=== PATIENT | female | born 1955 | race Caucasian/White ===

== ENCOUNTER → 2024-03-31 14:21 | Outpatient (REF) | payer BC, SELFPAY | LOC: PAVMRI 14:21 | PROVIDERS: ATTENDING PHYSICIAN Family Medicine | DX: R25.1 Tremor, unspecified (principal); R47.89 Other speech disturbances; R51.9 Headache, unspecified | CPT/HCPCS: 70553; A9575 ==

== ENCOUNTER → 2024-04-04 13:56 | Outpatient (REF) | payer BC, SELFPAY ==
[2024-04-04 16:55] LABS: Blood Urea Nitrogen 20 mg/dl (7-17); Carbon Dioxide 32 mmol/L (22-30); Chloride 95 mmol/L (98-107); Glucose 277 mg/dl (70-99); Potassium 4.5 mmol/L (3.5-5.1); Sodium 138 mmol/L (135-145); eGFR > 60.00
== END ==
LOC: RAD 13:56
PROVIDERS: ATTENDING PHYSICIAN Psychiatry & Neurology Neurology; FAMILY PHYSICIAN Family Medicine
DX: C79.31 Secondary malignant neoplasm of brain (principal)
CPT/HCPCS: 36415; 71260; 74178; 80048; Q9967

== ENCOUNTER 2024-04-24 02:22 | Inpatient (IN) | payer BC, MEDICARE, SELFPAY ==
[2024-04-24] VITALS (15 sets, daily range): BP systolic 73–165; BP diastolic 61–117; PULSE 70–72; O2SAT 93; BMI 39.9; BMI 39.8
[2024-04-24 00:05] LABS: Glucose - Point of Care 321 mg/dl (70-99)
--- NOTE | 2024-04-24 00:15 | ED.CVA ---
History of Present Illness
General
Chief Complaint: CVA/TIA Symptoms
Source: patient and spouse
Time Seen by Provider: 04/24/24 00:13
Onset of Stroke Symptoms
Onset of symptoms known: Yes
Date of onset of symptoms: 04/24/24
Time of onset of symptoms: 23:00
History of Present Illness
History of Present Illness:
68-year-old female presents to the emergency room for evaluation of left leg weakness. Patient states that she was sitting in a chair at her dinner table when she stood up her left leg gave out. Patient denies any history of leg weakness. She has
had some previous back surgeries but has never had weakness in the lower extremities related to this. She denies any visual changes. She feels her left arm is normal. Patient's believes her speech is slower than normal though he does not
believe her speech is slurred. Patient had an MRI performed recently which the patient states had some lesions on it.
Past History
Past History
ED Past Medical History: Arrthythmia (afib), CHF, HTN, NIDDM and Other (Back pain); Negative CA or Valvular disease
ED Past Surgical History: Cardiac (ablation 2018)
Social History
Tobacco: Non-smoker
Alcohol: None
Drug: None
Personal:
Living: with family
Phy Exam
Physical Exam
Physical Exam:
General: Awake, Alert, Oriented X3. No acute distress.
Vitals: unremarkable
Head: Atraumatic
Eyes: Pupils equal, EOMI
Throat: Airway intact, no exudates
Neck: Trachea midline
Lungs: Clear and equal b/l
Heart: Regular rate, no murmurs
Abd: Soft, Nontender, No pulsatile mass
Neuro: Cranial nerves intact, 4-5 muscle strength left lower extremity otherwise muscle strength intact, sensation intact, cerebellar exam normal
Skin: Warm, dry, no rash
Extremities: pulses equal b/l, no edema
NIH Stroke Score
Level of Consciousness: 0 - Alert
LOC questions: 0-Answers both correctly
LOC Commands: 0-Performs both correctly
Best Gaze: 0-Normal
Visual Lion: 0=Normal, no visual loss
Facial palsy: 0=Normal, symmetrical
Motor - Right Arm: 0=No drift 10 seconds
Motor - Left Arm: 0=No drift 10 seconds
Motor - Right Le-No drift 5 seconds
Motor - Left Le-Drift < 5 seconds
Limb Ataxia: 0-Absent
Sensation: 0-Normal
Best Language: 0-No aphasia
Dysarthria: 0-Normal
Extinction and Inattention: 0-No abnormality
Total Score:: 1
Course
Orders/Labs/Results
Orders:
Orders
04/24/24 00:10
EKG [Electrocardiogram (*1)] Urgent
Reason for Study: Tachycardia
EKG- Treatment ONCE
04/24/24 00:14
CT Head & Neck Angio W/wo IV Urgent
Comment:
Reason For Exam: left leg weakness
CT Head W/o Cont STROKE ALERT Urgent
Comment:
Reason For Exam: left leg weakness
04/24/24 00:30
Complete Blood Count/With Diff Urgent
Comprehensive Metabolic Panel Urgent
Troponin I Urgent
04/24/24 01:50
Admit/Transfer Patient As Directed
Co-Sign Provider:
Level of Care: Inpatient admission
Assign to:: Telemetry
Physician / Group: Kathy
Diagnosis: Left leg weakness
Reason for Telemetry: CVA/TIA
Date to Stop Telemetry: 04/27/24
Time to Stop Telemetry: 11:00
Reason for Hospitalization: Left leg weakness and ring-enhancing lesion
Expected length of stay greater than two midnights?: Yes
ELOS- Estimated Length of Stay in days: 5
I certify the patient meets the requirements for IP care: Yes
04/24/24 01:52
Code Status As Directed
Resuscitation Status: Full Code
04/24/24 02:00
Flush (0.9% Sodium Chloride) [Flush (Nss)] See Dose Instructions IV PER PROTOCOL
04/27/24 11:00
DC Protocol for Telemetry ONCE
Abnormal Lab Results
04/24/24 04/24/24
00:04 00:30
MCH 31.5 H pg
(27.0-31.0)
MPV 10.5 H fL
(7.4-10.4)
Abs Immat Gran (auto) 0.1 H 10^3/uL
(0-0.05)
Absolute Monos (auto) 0.8 H 10^3/uL
(0.1-0.6)
Absolute Eos (auto) 0.9 H 10^3/uL
(0-0.7)
Immature Gran % 1.1 H %
(0-0.5)
Eosinophils % 8.9 H %
(0-6)
BUN 25 H mg/dl
(7-17)
Creatinine 1.1 H mg/dL
(0.6-1.0)
Glucose 314 H mg/dl
(70-99)
AST 103 H U/L
(14-36)
ALT 37 H U/L
(0-35)
POC Glucose 321 H mg/dl
(70-99)
04/24/24 00:30
04/24/24 00:30
Vital Signs
Initial and Last Documented VS:
Initial Vital Signs
Temp Pulse Resp BP Pulse Ox
98.9 F 71 20 132/83 97
04/24/24 00:04 04/24/24 00:04 04/24/24 00:04 04/24/24 00:04 04/24/24 00:04
Last Documented Vital Signs
Temp Pulse Resp BP Pulse Ox
98.9 F 74 17 116/70 96
04/24/24 00:04 04/24/24 01:30 04/24/24 01:30 04/24/24 01:30 04/24/24 01:30
MDM/Problems Addressed
Differential Diagnosis Includes:
TIA/CVA/sz/Lumbar radiculopathy
MDM/Problems Addressed:
Patient made a stroke alert on arrival. Patient presents with what appears to be acute onset of left lower extremity weakness. No other focal findings noted on neurologic exam. CT and CTA do not show any evidence of an acute infarct or large
vessel occlusion. Patient had an MRI which shows lesions of unclear etiology. Differential in the report includes metastatic disease, infectious lesions or ischemic lesions. The patient is not a candidate for thrombolysis given a low NIH score as
well as the possibility of cerebral metastases. Patient will be hospitalized for further workup of her leg weakness.
Chronic conditions affecting care: HTN and Arrhythmia
*Pulse Oximetry
Patient hypoxic: no
*EKG
Interpreted by ED Provider?: Yes
Interpretation: abnormal
Heart Rate: 68
Rate: normal
Rhythm: atrial flutter
QRS Pattern: normal QRS
Ischemia: no ischemia
*[employer] Interpretation
Rate: normal
Interpretation: abnormal
Rhythm: atrial flutter
*Critical Care Note
Total Time (30-74mins, 75-104mins- exclusive of procedures): 35 minutes
comment:
Critical care statement: A total of 35 minutes of critical care time was provided for this patient. This includes management of unstable vital signs, evaluation of the patient at bedside, reviewing the patient's pertinent medical records, discussion
with consultants, review of old EKGs and review of pertinent medical records. This time with separate from time utilized to perform the aforementioned documented procedures
ED Attending Note
-
Portions of this chart may have been created with voice recognition software.� Occasional wrong word or��sound alike� substitutions may have occurred due to the inherent limitations of voice recognition software.
Discharge Plan
Departure
Patient Disposition: Admit
Date of Disposition: 04/24/24
Time of Disposition: 01:18
Admit to: Telemetry
Presentation/result/management discussed w/ accepting MD/DO: Hospitalist
Condition: Fair
Discharge Problem:
acute left leg weakness
Prescriptions:
No Action
gabapentin 300 MG capsule
300 mg PO BID
insulin aspart U-100 [Novolog U-100 Insulin aspart] 1,000 UNITS/10 ML solution
20 units SC .FOR BS>300 PRN (Reason: BS>300)
ezetimibe 10 MG tablet
10 mg PO DAILY
oxycodone [OxyContin] 20 MG tablet,oral only,ext.rel.12 hr
20 mg PO Q12
Patient Comments:
on hold pending insurance
losartan [Cozaar] 100 MG tablet
100 mg PO DAILY
oxycodone 10 MG tablet
10 mg PO Q8HPRN PRN (Reason: pain)
cholecalciferol (vitamin D3) 125 MCG tablet,disintegrating
2,500 unit PO HS
polyethylene glycol 3350 17 GRAMS powder in packet
17 grams PO DAILY PRN (Reason: constipation)
ascorbic acid (vitamin C) [Vitamin C] 500 MG tablet
500 mg PO DAILY
diphenhydramine HCl [Banophen] 25 MG capsule
25 mg PO Q4HPRN PRN (Reason: itching)
Magnacaps 100 MG capsule
100 mg PO DAILY
metoprolol tartrate [Lopressor] 50 MG tablet
75 mg PO DAILY
duloxetine 60 MG capsule,delayed release(DR/EC)
60 mg PO DAILY
Eliquis 5 MG tablet
5 mg PO BID
dapagliflozin propanediol [Farxiga] 5 MG tablet
5 mg PO DAILY
Repatha Syringe 140 MG/ML syringe
140 mg SQ Q2W
ethacrynic acid 25 MG tablet
25 mg PO PRN PRN (Reason: swelling)
Patient Comments:
1-2 tabs
ascorbic acid (vitamin C) [Vitamin C With Amberly Hips] 500 MG tablet
500 mg PO DAILY
vitamin B complex 1 TAB tablet
1 tab PO DAILY
epinephrine [EpiPen 2-Cezar] 0.3 MG/0.3 ML auto-injector
0.3 mg IJ PRN PRN (Reason: anaphylaxis)
zinc 10 MG tablet
23 mg PO BID
naloxone [Narcan] 4 MG spray,non-aerosol
4 mg intranasal DIRECTED PRN (Reason: overdose of oxycodone)
metformin 1,000 MG tablet
1,000 mg PO BID Qty: 0 0RF
Rx Instructions:
Hold post cath, resume on Sat am
metoprolol tartrate 50 mg Tablet
50 mg PO HS
aspirin 81 mg Tablet,Delayed Release (Dr/Ec)
81 mg PO DAILY
Excedrin Extra Strength 250-250-65 mg Tablet
1 tab PO Q6H PRN (Reason: pain)
Interventions
Interventions:
*Risk Screen - Suicide Last Done: 04/24/24 00:33
*General Assessment Last Done: 04/24/24 00:33
*Neglect/Abuse Screening Last Done: 04/24/24 00:33
ED- Fall Risk Assessment Last Done: 04/24/24 00:34
*ED COVID-19 Vaccine History Last Done: 04/24/24 00:32
ED- Pulmonary Assessment Last Done: 04/24/24 00:35
ED- Neurological Assessment Last Done: 04/24/24 00:34
ED- Cardiac Assessment Last Done: 04/24/24 00:33
Discharge Date and Time
Print Language: GRENADIAN
[2024-04-24 00:44] LABS: % Basophils 1.9 % (0-2); % Eosinophils 8.9 % (0-6); % Immature Granulocytes 1.1 % (0-0.5); % Lymphocytes 32.3 % (20.5-51.1); % Monocytes 7.7 % (1.7-9.3); % Neutrophils 48.1 % (42.2-75.2); Absolute Basophils 0.2 10^3/uL (0-0.2); Absolute Eosinophils 0.9 10^3/uL (0-0.7); Absolute Immature Granulocytes 0.1 10^3/uL (0-0.05); Absolute Lymphocytes 3.4 10^3/uL (1.2-3.4); Absolute Monocytes 0.8 10^3/uL (0.1-0.6); Hematocrit 43.9 % (37.0-47.0); Hemoglobin 14.9 g/dL (12.0-16.0); Mean Corp Hgb Conc. 33.9 g/dL (33.0-37.0); Mean Corpuscular Hgb 31.5 pg (27.0-31.0); Mean Corpuscular Volume 92.8 fL (81.0-99.0); Mean Platelet Volume 10.5 fL (7.4-10.4); Nucleated Red Blood Cells % 0 %; Platelet Count 339 10^3/uL (130-400); Red Blood Cell Count 4.73 10^6/uL (4.20-5.40); Red Cell Dist. Width 14.5 % (11.5-14.5); White Blood Cell Count 10.5 10^3/uL (4.8-10.8)
[2024-04-24 01:00] LABS: ALT (SGPT) 37 U/L (0-35); AST (SGOT) 103 U/L (14-36); Albumin 4.7 g/dl (3.5-5.0); Alkaline Phosphatase 77 U/L (38-126); Blood Urea Nitrogen 25 mg/dl (7-17); Calcium 9.9 mg/dl (8.4-10.2); Carbon Dioxide 28 mmol/L (22-30); Chloride 98 mmol/L (98-107); Estimated Creatinine Clearance 68 ml/min; Glucose 314 mg/dl (70-99); Potassium 4.6 mmol/L (3.5-5.1); Sodium 138 mmol/L (135-145); Total Bilirubin 0.5 mg/dl (0.2-1.3); Total Protein 7.4 g/dl (6.3-8.2); eGFR 54.39
[2024-04-24 01:11] LABS: Troponin I < 0.012 ng/ml
--- NOTE | 2024-04-24 01:21 | HPS.HSE ---
Addendum entered and electronically signed by Jeromy Chavez MD 04/24/24 06:33:
Will continue aspirin in case this is a stroke
She is allergic to statin she gets her Repatha injection
As mentioned below needed CT chest, abdomen and pelvis showing IV contrast and creatinine mildly elevated, I will hold off ordering it until seen by oncologist or other physician, can be ordered pending her renal function then
Original Note:
Family Physician
-
Family Physician:
Chief Complaint
-
Left leg weakness
History of Present Illness
Pleasant 68-year-old female with history of diabetes, hypertension, chronic elevated liver enzymes likely fatty liver, presented to the hospital after sudden onset of the left leg weakness she calling in for an knee gave way and buckled up, she says
she was preparing dinner and not a dinner tray to get up on the table she could not but did not fall, denies any dizziness or any syncope, no speech disturbance, no visual change or any facial droop, or any chest pain shortness of breath or fever or
chill, admits she was doing well prior to the event, no urinary or GI symptoms, denies any weight change, no rectal bleed or hematuria, no cough or congestion.
Admits she has been having a chronic headache and eventually had an MRI as an outpatient and the result below show for ring-enhancing lesion in the right side of the brain, patient aware about that and saw her primary care physician today and CT
chest, abdominal pelvis with IV contrast ordered as an outpatient also she has a PET scan scheduled for May 01.
Currently she feels better and leg weakness is not existing when she laid down,
She supposed to take Eliquis for A-fib but she ran out 2 weeks ago and she has not been taking it.
Accompanied by her at the bedside
CT head CTA head and neck did not show any acute abnormalities.
Medical History
Past Medical History
Past Medical History: Reports Other
Additional Past Medical History:
Past medical history:
Hypertension
Diabetes mellitus
Chronic low elevated liver enzyme mildly likely fatty liver
Chronic diastolic congestive heart failure
Coronary artery disease
Atrial fibrillation
Thyroid nodule
Ascending thoracic aortic aneurysm 4.5 cm.
Type 2 diabetes mellitus
History of retinal hemorrhage in the right eye
Perform no neuropathy
Chronically cold feet and mildly purpleish color, patient has been
Social history: Lives at home with her , denies smoking and occasionally uses alcohol and no drug and she is independent.
Family history: Father had lymphoma as he was working on some chemical industry
Past Surgical History: Reports Other
Social History
Unable to obtain full social history at this time due to: Other
Family History
Family History: Other
Allergies / Home Medications
Allergies reflects when Allergies were last updated in [facility].
Home Medications with original date entered in [facility]
Allergy/Medication List:
Allergies
Allergy/AdvReac Type Severity Reaction Status Date / Time
cephalexin [From Keflex] Allergy Unknown Hives Verified 04/24/24 00:03
Penicillins Allergy Hives Verified 04/24/24 00:03
pioglitazone [From Actos] Allergy Swelling Verified 04/24/24 00:10
Xmhdvww-ENJ-GwK Reductase Allergy Unknown Verified 04/24/24 00:03
Inhibitor
[Slbbaxh-Xpe-Wcr Reductase
Inhibitor]
sulfamethoxazole Allergy Anaphylaxis Verified 04/24/24 00:03
[From Bactrim]
trimethoprim [From Bactrim] Allergy Anaphylaxis Verified 04/24/24 00:03
some cheeses Allergy Itching Uncoded 04/24/24 00:03
Home Medications
gabapentin 300 mg capsule 300 mg PO BID 09/20/16
ezetimibe 10 mg tablet 10 mg PO DAILY 06/11/18
insulin aspart U-100 100 unit/mL subcutaneous solution (Novolog U-100 Insulin aspart) 20 units SC .FOR BS>300 PRN BS>300 06/11/18
oxycodone 20 mg tablet,crush resistant,extended release 12 hr (OxyContin) 20 mg PO Q12 06/11/18
apixaban 5 mg tablet (Eliquis) 5 mg PO BID 02/16/22
ascorbic acid (vitamin C) 500 mg tablet (Vitamin C With Amberly Hips) 500 mg PO DAILY 02/16/22
ascorbic acid (vitamin C) 500 mg tablet (Vitamin C) 500 mg PO DAILY 02/16/22
cholecalciferol (vitamin D3) 125 mcg (5,000 unit) disintegrating tablet 2,500 unit PO HS 02/16/22
dapagliflozin propanediol 5 mg tablet (Farxiga) 5 mg PO DAILY 02/16/22
diphenhydramine HCl 25 mg capsule (Banophen) 25 mg PO Q4HPRN PRN itching 02/16/22
duloxetine 60 mg capsule,delayed release 60 mg PO DAILY 02/16/22
epinephrine 0.3 mg/0.3 mL injection, auto-injector (EpiPen 2-Cezar) 0.3 mg IJ PRN PRN anaphylaxis 02/16/22
ethacrynic acid 25 mg tablet 25 mg PO PRN PRN swelling 02/16/22
evolocumab 140 mg/mL subcutaneous syringe (Repatha Syringe) 140 mg SQ Q2W 02/16/22
losartan 100 mg tablet (Cozaar) 100 mg PO DAILY 02/16/22
magnesium 100 mg capsule (Magnacaps) 100 mg PO DAILY 02/16/22
metformin 1,000 mg tablet 1,000 mg PO BID ##0 02/16/22
metoprolol tartrate 50 mg tablet (Lopressor) 75 mg PO DAILY 02/16/22
naloxone 4 mg/actuation nasal spray (Narcan) 4 mg intranasal DIRECTED PRN overdose of oxycodone 02/16/22
oxycodone 10 mg tablet 10 mg PO Q8HPRN PRN pain 02/16/22
polyethylene glycol 3350 17 gram oral powder packet 17 grams PO DAILY PRN constipation 02/16/22
vitamin B complex 1 tab PO DAILY 02/16/22
zinc 10 mg tablet 23 mg PO BID 02/16/22
aspirin 81 mg tablet,delayed release 81 mg PO DAILY 04/24/24
amegwnb-iyfhimcpluasg-agtmdfkt 250 mg-250 mg-65 mg tablet (Excedrin Extra Strength) 1 tab PO Q6H PRN pain 04/24/24
metoprolol tartrate 50 mg tablet 50 mg PO HS 04/24/24
Review of Systems
-
A 12 point ROS was completed and negative except as noted: Yes
Physical Exam
Vital Signs
Vital Signs
Temp Pulse Resp BP Pulse Ox
98.9 F 70 21 126/61 96
04/24/24 00:04 04/24/24 01:00 04/24/24 01:00 04/24/24 01:00 04/24/24 01:00
Physical exam:
General: Awake, alert and oriented x3, not in distress and holds appropriate conversation. Overweight
HEENT: No active discharge, ecchymosis or bruising, moist lips, tongue and mucous membrane.
Eyes: No discharge or red conjunctiva, no nystagmus, pupils are reactive and equal
Neck:Supple, no JVD no bruit no goiter.
Respiratory: Normal AP contour and diameter, normal chest wall movement, normal respiratory effort, no respiratory distress,
Lungs: Good air entry bilaterally, no wheezing or rhonchi, no rales or crackles
Heart: S1, S2 regular, normal rate, no added sound.
Gastrointestinal: Positive bowel sounds, soft, nontender, no guarding or rigidity or organomegaly
Musculoskeletal: , no chest wall abnormality or tenderness. All joints and extremities have good range of motion, no muscle tenderness or any joint swelling or tenderness.
Extremities: No pitting edema, weak bilateral dorsalis pedis pulses, and both feet chronically cold and mildly purplish in color, good range of motion
Skin: Warm and dry, no ulceration, normal color.
Neurological: Awake, alert and oriented x3, cranial nerve II-XII grossly intact, extension intention intact, cerebellar sign intact speech clear and comprehensive, good muscle tone, normal sensory and motor function, no facial droop, visual acuity
intact, extraocular muscle intact, NIH score is 0
Psychiatric: Normal mood, normal thought and judgment, normal affect,
Physical Exam
General: Other
Laboratory Results
-
04/24/24 00:30
04/24/24 00:30
Laboratory Results
Total Bilirubin 0.5 mg/dl (0.2-1.3) 04/24/24 00:30
AST 103 U/L (14-36) H 04/24/24 00:30
ALT 37 U/L (0-35) H 04/24/24 00:30
Alkaline Phosphatase 77 U/L (38-126) 04/24/24 00:30
Troponin I < 0.012 ng/ml 04/24/24 00:30
CT brain:
No intracranial abnormality, no acute intracranial hemorrhage.
CTA head no large vessel occlusion or severe flow-limiting stenosis of major arteries of the anterior posterior circulation, hypoplastic V4 right vertebral artery.
CTA neck no occlusion, severe flow-limiting stenosis or evidence of dissection, approximately 50% chronic atherosclerotic stenosis of the right-sided CCA bifurcation from heavy calcified plaque and
Dilated pulmonary trunk consistent with pulmonary hypertension, ectatic ascending aorta at 4.2 cm diameter
Brain MRI: Done on March 31, 2024.
Multiple enhancing intraparenchymal lesions:
-0.4 cm enhancing lesion in the cortex of the posterior right frontal lobe (series 903, image 98).
-1.0 x 0.8 x 1.5 cm rim-enhancing lesion in the right frontal lobe and right insula (series 903, image 95). Mild associated restricted diffusion.
-0.5 cm enhancing lesion in the anterior cortex of the right insula (series 903, image 84).
-1.0 x 0.9 x 1.2 cm ring-enhancing lesion at the posterior margin of the right basal ganglia (series 903, image 97).
Corresponding T2/FLAIR hyperintense signal of the two larger lesions. Mild intrinsically hyperintense T1 signal of the lesion in the posterior right basal ganglia.
Moderate age-related parenchymal atrophy. T2/FLAIR hyperintense signal in the white matter of the bilateral cerebral hemispheres, most compatible with the changes of mild chronic microangiopathic ischemia. No mass effect, midline shift, or extra
axial collection.
The vascular flow voids at the skull base are unremarkable, as far as visualized.
The paranasal sinuses and mastoids are clear. Bilateral ocular lens implants.
IMPRESSION:
Four enhancing intraparenchymal lesions in the right cerebral hemisphere, the two larger of which show ring enhancement. The primary concern would be intraparenchymal brain metastases. Other differential considerations including signal changes and
enhancement secondary to infection or ischemia would be considered less likely based on their imaging appearance.
Data Reviewed
-
CT Scan: Image Personally Visualized and interpreted, Discussed with Patient and Discussed with Family
MRI: Report Reviewed by me, Discussed with Patient and Discussed with Family
Lab Data: Labs Reviewed by me and Discussed with Family
Old Records: Reviewed
Impression/Plan
-
IMPRESSION:
68-year-old female with history of coronary disease, diabetes, dyslipidemia, A-fib and ran out of the Jovie for 2-week and not taking it, presents with a sudden weakness of the left leg which look like resolved now in the ER during exam and laying
down, also she has a chronic headache while the MRI on March 31 showed multiple ring-enhancing lesion on the right cerebral hemisphere.
Left leg weakness, stroke versus related to the ring-enhancing lesion in the right cerebral hemisphere
Multiple ring-enhancing lesion in the right cerebral hemisphere
Acute kidney injury, creatinine 1.1
Diabetes mellitus
Noncompliant with medication
Chronic elevated liver enzymes likely secondary to fatty liver
Hypertension
Coronary artery disease
Chronic pain syndrome on narcotic.
Peripheral neuropathy
Concern for peripheral vascular disease
PLAN:
Cardiac monitoring
I will get a neurosurgery, oncology and neuro consult
Lymphoma or infectious causes may need to be considered, but infection unlikely.
Patient needs CT chest, abdomen and pelvis 24-hour after the current CAT scan and she will receive IV contrast and creatinine mildly elevated.
PT OT
Fall precaution
I will hold off restarting Eliquis as she has not been taking it for the last couple of week in case plan for biopsy or any intervention if not then can be restarted.
Hold aspirin
Monitor vital sign
IV fluid
Recheck lab
Continue her oxycodone
Continue insulin and monitor blood sugar.
I will hold diuretic for now she looks dry and dehydrated and needs IV fluids.
Advised about compliance with medication making sure not running out of the medication
Regarding elevated liver enzymes regular care of chronically elevated, this could be a fatty liver, metastases or liver lesion could be a possibility, she says she does not take much Tylenol.
CT abdominal pelvis to assess annually.
Viral hepatitis panel.
All discussed with the patient and the and expressed understanding
CODE STATUS of full code
DVT prophylaxis: Will SCD for now in case Of any intervention otherwise if no intervention planned can be started on pharmacologic prophylaxis.
[2024-04-24 02:53] LABS: Glucose - Point of Care 309 mg/dl (70-99)
--- NOTE | 2024-04-24 07:28 | W.PN.HOSP.TC ---
Addendum entered and electronically signed by Susan Clancy MD 04/24/24 16:29:
68-year-old female Presented to the hospital with acute onset of left leg weakness. Patient has been having chronic headaches and had an MRI as outpatient which showed calcifications. She also had a CT of the chest abdomen pelvis. She was
scheduled for a PET scan as outpatient.
CTA-calcific plaque within the carotid bulb less than 50% stenosis. Aneurysm of the ascending aorta 4.9 cm. Main pulmonary trunk dilated 3.9 cm suggestive of pulmonary artery hypertension. 1.9 cm right thyroid nodule
CVS: S1-S2 normal
Chest: CTA B/L
Abdomen: Soft, NT / Bowel sounds present
Extremities: No edema
CAMERA MECHANIC: No cranial nerve deficits. Normal sensorimotor exam. Normal flexors
# Left leg weakness
Rim-enhancing lesions in the brain
Differentials include metastasis, CVA, infections
Repeat MRI-focal area of abnormal restricted diffusion in the right posterior paramedian parietal lobe no evidence of enhancement likely focus of acute to subacute infarction.
More subtle region of increased diffusion weighted signal in the right paramedian frontal lobe and extending into the white matter suspicious for an area of acute to subacute infarction.
Multiple regions of persistent enhancement in the right cerebral hemisphere without significant change since March 31, 2024 felt to be mostly subacute infarction with persistent enhancement. Neoplastic disease is not completely excluded and in the
differential.
She admitted to not taking Eliquis for the past 2 weeks unclear if this could be the reason
Lumbar puncture also ordered , which I agree with to rule out infectious etiology for the rim-enhancing lesions.
Since she is off of Eliquis this would be the perfect timing to obtain LP.
Would also get a PET scan as scheduled
# Acute kidney injury
Possibly could be an injury
Check urinalysis and urine sodium
IV fluids as she also received contrast for CTA
Hold Jardiance and losartan
Follow creatinine
# Paroxysmal atrial fibrillation cardioversion October 2016
Ablation December 2016
Did not take Eliquis for 2 weeks as she ran out
Continue Eliquis 5 twice daily if okay with neurology
# Hypertension-continue metoprolol. Hold losartan with elevated creatinine
# Diabetes with neuropathy-
Check hemoglobin A1c
Hold Farxiga with elevated creatinine.
Continue metformin
Lantus insulin 12 units at night, NovoLog 5 AC plus sliding scale coverage
Hemoglobin A1c 11.3
She may need to be on insulin moving forward
Continue gabapentin for neuropathy
# Sleep apnea on CPAP
# Chronic heart failure with preserved ejection fraction. Hold ethacrynic acid with elevated creatinine
# Hyperlipidemia-continue Zetia, Repatha
# History of herniated disks and degenerative joint disease-with microdiscectomy #
# History of DRESS Syndrome from Bactrim
# Ascending aortic aneurysm 4.9 cm
# Hepatic steatosis
# 2.2 cm region of subtle increased attenuation in the inferior lateral margin of the right lobe-needs MRI
# Diverticulosis
# 1.9 cm right thyroid nodule. Outpatient workup
# DVT prophylaxis
# Full code
Discussed with neurology
Discussed with patient's at bedside
Discussed with nursing
Time spent over 50 minutes
Original Note:
Today's Communication/Plan
-
check LP
Assessment / Plan
Assessment / Plan
68-year-old female with history of coronary disease, diabetes, hyperlipidemia, A-fib and ran out of the Eliquis for 2-week and not taking it, presents with a sudden weakness of the left leg which resolved in the ER during exam and laying down, also
she has a chronic headache while the MRI on March 31 showed multiple ring-enhancing lesion on the right cerebral hemisphere.
#Left leg weakness,
PVD vs stroke versus related to the ring-enhancing lesion in the right cerebral hemisphere
- neurology consulted
- NIH score 1 in the ER
- CT and CTA do not show any evidence of an acute infarct or large vessel occlusion
- check LP
#Acute kidney injury,
- creatinine 1.1
- recehck labs
#Diabetes mellitus
-Continue insulin and monitor blood sugar.
#Chronic elevated liver enzymes likely secondary to fatty liver vs mets or Liver lesion
- check CT w contrast abd/pelvis
- viral hep panel pending
# Chronic A-fib
- ran out of eliquis 2 eeks ago
- EKG : ATRIAL FLUTTER WITH VARIABLE A-V BLOCK
#Hypertension- on lasartan at home
#Coronary artery disease- continue metoprolol
#Chronic pain syndrome on narcotic.- continue oxycontin
#Peripheral neuropathy- continue gabapentin and duloxetine
CODE STATUS: full code
DVT prophylaxis: Will SCD for now in case Of any intervention otherwise if no intervention planned can be started on pharmacologic prophylaxis.
Anticipated Discharge: Within 24 hours
Subjective/Interval History
-
Date of Service: April 24, 2024
Objective Data
-
Labs:
Laboratory Results
04/24/24 04/24/24 04/24/24
00:30 02:39 06:00
WBC 10.5 Pending
Hgb 14.9 Pending
Hct 43.9 Pending
Plt Count 339 Pending
Sodium 138 Cancelled
Potassium 4.6 Cancelled
Chloride 98 Cancelled
Carbon Dioxide 28 Cancelled
BUN 25 H Cancelled
Creatinine 1.1 H Cancelled
Glucose 314 H Cancelled
Calcium 9.9 Cancelled
Total Bilirubin 0.5 Cancelled
AST 103 H Cancelled
ALT 37 H Cancelled
Alkaline Phosphatase 77 Cancelled
Vital Signs:
Vital Signs
Temp Pulse Resp BP Pulse Ox
99.1 F 76 17 143/80 96
04/24/24 03:07 04/24/24 03:07 04/24/24 03:07 04/24/24 03:07 04/24/24 03:07
Review of Systems
-
History Source: Patient
Constitutional: Denies Fever
Respiratory: Denies Cough
Cardiac: Denies Chest Pain
Abdomen/GI: Denies Abdominal Pain
Genitourinary: Reports No Symptoms and Dysuria
Musculoskeletal: Denies Joint Pain
Neuro: Reports Headache
Hematologic / Lymphatic: Denies Bleeding
Physical Exam
-
General: Well Developed and Well Nourished
HEENT: Normocephalic and Atraumatic
Respiratory: Clear to Auscultation
Cardiac: Irregular Rhythm
GI: Soft and Nontender
Skin: Warm and Dry
Neuro: Awake, Alert, Oriented, AO x 3, No Motor Deficits, Nonfocal/Grossly Intact and No Sensory Deficits; Negative Tremors, Slurred Speech or Facial Droop
Psych: Calm
Data Reviewed
-
CT Scan: Report Reviewed by me, Discussed with Physician and Discussed with Patient
--- NOTE | 2024-04-24 07:37 | PTCARENOTE ---
Pt received from ER den[facility] 3 able to make her needs known, stroke packet provided.Pt states all her symptoms have resolved.NIH-0.Plan of care continued.
--- NOTE | 2024-04-24 08:11 | CON.NEURO4 ---
Addendum entered and electronically signed by Gerber Smith MD 04/24/24 15:59:
I saw and evaluated the patient I reviewed the note by Agatha Fish agree with the following the following comments:
68-year-old woman with a past medical history of obesity, hyperlipidemia, paroxysmal atrial fibrillation, CHF, diabetes mellitus, diabetic neuropathy presented to hospital due to sudden onset left leg weakness which lasted around 1 hour yesterday.
This seems to have completely resolved at this point. She denies any radiculopathy symptoms or significant change in chronic back pain she has had significant multiple spinal surgeries of the lumbar spine.
Patient had been not taking her apixaban for about the past 3 weeks.
At the end of March patient had gotten an brain MRI with and without contrast that was concerning for possibly brain metastasis to the right side of the brain. Patient had not had any focal symptoms of left-sided face arm or leg paresthesia or
weakness or speech difficulty or confusion but rather had had several months of daily unusual headache which prompted the brain scan.
She has no known history of malignancy has had an adrenal gland followed as well as multiple biopsies of a thyroid nodule.
Exam
Largely unremarkable neurologic examination, normal cranial nerve normal mental status normal motor function, normal coordination and fine finger movements
Imaging
Previous brain MRI images reviewed from the end of March: Subacute ischemic stroke in the right frontal and parietal cortex as well as right basal ganglia versus metastases are felt to be the most likely potential causes.
New brain MRI 04/24 still shows persistent contrast-enhancement in the right basal ganglia and right insula and right frontal lobe still with diffusion restriction in the right frontal lobe
Assessment: Subacute ischemic strokes of the right hemisphere versus neoplastic process/brain metastases which can be often very difficult to tell apart.
Patient's episode of left-sided low weakness yesterday I feel is probably too long-lasting to represent seizure, and usually less typical for seizures to produce negative symptoms/weakness. She did not have any back pain or radicular symptoms
during it so I feel is less likely due to her lumbar spine or nerve root issue. Most concerning for the left leg weakness to due to direct effects of the right-sided cerebral lesions versus a TIA given she has been off apixaban. CTA of the head
and neck is rule out any significant carotid stenosis as possible cause
Brain lesions on the repeated brain MRI today seem to be similar to the previous brain MRI approximately 3.5 weeks ago. Her clinical course leading up to the brain MRI at the end of March was characterized more by frequent diffuse unusual
headaches without any focal signs.
Patient does have diabetes but otherwise does not seem to be the type of patient who is so immune compromised that she would be at risk for toxoplasmosis or brain abscess, clinically she does not seem the picture of a brain abscess and certainly not
an encephalitis.
Probably has a degree of medication overuse headache given frequent nearly daily use of Excedrin migraine.
Recommendations
-Appreciate neurosurgical input
-Should hold off of steroids
-Switching metoprolol to propranolol may help with improving her headaches, additionally I informed her that she needs to stop Excedrin migraine for at least 1 month as it may be producing a medication rebound headache, in the meantime she could use
Compazine and 2 days a week maximum sumatriptan hand for as needed relief of headaches
-Await final read on brain MRI with and without contrast
-Would pursue lumbar puncture to more definitively rule out infection and [employer] although my suspicion is low
-We will need to get her back on apixaban for stroke prevention from atrial fibrillation as soon as felt possible but will need to solidify plans for any further potential procedures or biopsies given the concern for malignancy, in the meantime
continue aspirin
Original Note:
Documented by User: Agatha Mccullough NP 04/24/24 15:15
Consultation - Neurology 4
-
CONSULTING PHYSICIAN: Bakari Smith MD
REFERRING PHYSICIAN: Hospitalists/Dr. Chavez
DICTATED BY: MURTAZA Norris
DATE/TIME OF REQUEST: 04/24/24
DATE/TIME OF CONSULTATION: 04/24/24
Reason for Consultation: LLE weakness
History of Present Illness:
This is a 68-year-old right-handed female who has presented to the hospital on 04/23/24 with report of LLE weakness. Patient endorses a 6 month history of new onset daily persistent headache that has progressively worsened in the past 2-3 months.
She was sent for an MRI brain as an outpatient by her PCP. She completed this on 03/31/24 and it demonstrated multiple enhancing lesion in the right frontal lobe, right insula, and right basal ganglia. She denies any other neurological symptoms
besides a hand tremor right>left with exertion only. She was evaluated by Neurology Dr. Mena Lainez on 04/04/24 for this and was told her tremor was likely an essential tremor and they planned to repeat her MRI brain at a later date. She has not
yet set up an appointment with Neurosurgery as an outpatient. Yesterday (04/23/24), patient reports feeling in her usual state when she stood up from her kitchen table at 2230 and suddenly noted that her LLE felt weak, like it was going to give-out
on her, and her gait was unsteady. She typically ambulates with a single point cane but reports needing two canes, a rolling walker, and the assistance of her to make it to her car to come to the ER. On arrival in the ER, CT head and CTA
head/neck were obtained and do not demonstrate any acute finding other than the known lesions in the right hemisphere. NIHSS was 1 for LLE drift. She was not a candidate for TNK/IAT due to low NIHSS and no LVO. Patient reports that after about 1-2
hours her LLE returned to baseline and today she is ambulating without any issues. She is prescribed Eliquis 5mg BID for Afib but reports running out of this medication about three weeks ago, it is unclear if this was before or after she had her MRI
brain completed. She also takes aspirin 81mg daily for cardiac purposes and has continued this. She denies any dizziness, vision changes, speech/swallow difficulty, new numbness, chest pain, palpitations, and shortness of breath. She has chronic
neuropathy in bilatral lower extremities long term up her shins and also in bilateral hands. She also notes a recent history of coughing with oral intake. She reports her usual frontal headache, currently she rates it a 6/10. Her headache is almost
daily and ranges from a 6-10/10. It is associated with mild photophobia, phonophobia, nausea but no vomiting. She has chronic lower back pain and takes oxycodone BID for this for years, she reports that helps her headache somewhat. Additionally, she
has been taking Excedrin Migraine 1-2x per day for 1-2 months with improvement in her headache. She denies any low back pain/radiculopathy last night when her LLE weakness occurred. Her lumbar radiculopathy can occur in both legs, typically after
she has been walking or standing for an extensive period of time. She denies any history of TIA, stroke, or leg weakness in the past. She is scheduled to have a PET scan on 05/01/24, CT abdomen and pelvis on 04/04/24 which demonstrated small
mediastinal lymph nodes.
Past Medical History: HTN, HLD, paroxysmal Afib, NIDDM, CHF, left adrenal adenoma (never biopsied), right and left thyroid nodule, diabetic neuropathy and retinopathy, glaucoma, lumbar DDD/stenosis/radiculopathy, LAVONNE (cpap), depression, thoracic
aortic aneurysm
Surgical History: Cholecystectomy, D&E, PVI ablation, laparoscopic lumbar laminectomy/discectomy x6, left eye vitrectomy, b/l cataract removal, thyroid biopsy x2
Family History: Father- [place] age 55.
Social History: Denies tobacco and illicit drug use. Rare alcohol. Lives with her and cats. 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
Allergies: See below.
Home Medications: See below.
Review of Symptoms:
Patient denies any fever, chest pain, shortness of breath, GI or symptoms.
�Per the HPI.�All systems are reviewed negative except above.
Physical Exam:
The patient is afebrile, abdomen is nondistended, breathing is unlabored, skin is warm and dry, no edema.
NIH Stroke Scale:
I performed the NIH stroke scale on the patient on 04/24/24 at 0930. The patient scored 0 points on the NIH stroke scale assessment, which were assigned as follows: See below.
Neurologic Examination:
The patient is awake, alert and oriented x 3. She is able to follow commands and answer questions appropriately. There is no aphasia or dysarthria. On cranial nerve assessment, pupils are 3 mm bilateral, round and reactive to light and
accommodation, slightly more sluggish in the right eye. Visual lion are full. Extraocular movements are intact. Facial sensations are intact and bilaterally symmetrical, there is no facial asymmetry. Hearing is intact bilaterally to normal
conversation volume. Tongue palate and uvula are midline. Sternocleidomastoid strengths are full bilaterally. Motor strengths are 5/5 bilateral upper and 5-/5 bilateral lower extremities on medical research [place] scale. There is no drift or
involuntary movement noted. Deep tendon reflexes are absent bilateral upper and lower extremities and Babinski is absent bilaterally. Sensations of touch, temperature and vibration are intact and bilaterally symmetrical. There was no extinction
noted on double simultaneous stimulation. Coordination is intact by finger to nose bilaterally.
Lab Results: See below.
Neuro Imaging:
1. CT Head 04/23/24: No intracranial hemorrhage or abnormal mass effect. Scattered foci of hypoattenuation within the right cerebral hemisphere. These may be related to ring-enhancing masses seen on prior MRI dated 03/31/2024, and are concerning for
intracranial metastasis. CT appearance is nonspecific, and infarct or small vessel ischemic change may look similar on CT.
2. CTA head/neck 04/23/24: No evidence of large vessel occlusion, or arterial dissection. Calcified plaque within each carotid bulb, associated with less than 50% stenosis on each side. Aneurysm of the ascending thoracic aorta, measuring 4.9 cm in
greatest imaged orthogonal dimension. Main pulmonary trunk is dilated, measuring 3.9 cm in diameter, suggestive of pulmonary arterial hypertension. 1.9 cm right thyroid nodule. This may be further evaluated with thyroid ultrasound.
Differentials for the patient's presentation include:
1. Transient left lower extremity weakness; unclear etiology, TIA, right hemisphere brain lesions, or lumbar spine issue all possible.
2. New daily persistent headache possibly worsened by medication overuse.
Patient has the following risk factors for their symptoms:
IV Tenecteplase/IAT candidacy: She was not a candidate for TNK/IAT due to low NIHSS and no LVO.
Recommendations:
-Lumbar puncture pending.
-MRI brain w/ and w/o contrast pending per Neurosurgery.
-Goal normotension.
-Continue Eliquis 5mg BID when no further interventional procedures are planned.
-Continue aspirin 81mg daily now.
-Would not start steroids at this point unless otherwise advised by Neurosurgery.
-Okay to continue home oxycodone but this is likely not helping her headache.
-Discontinue use of Excedrin.
-Initiate magnesium 400mg and riboflavin 400mg PO daily for headache prevention.
-Consideration for changing home metoprolol to propranolol for headache prevention if okay with Cardiology.
-Provide prochlorperazine 10mg PO q8hrs for headache relief.
-DVT prophylaxis.
-NIHSS and neurological checks per unit guidelines.
-Provide patient with a stroke education packet.
-PT/OT/ST evaluations.
-Will follow.
Discussed patient care with: Dr. Smith, the patient
Vital Signs and Labs
-
Vital Signs and Labs:
Vital Signs
Temp Pulse Resp BP Pulse Ox
97.7 F 79 18 165/80 94
04/24/24 13:07 04/24/24 13:07 04/24/24 13:07 04/24/24 13:07 04/24/24 13:07
Lab Results
04/24/24 08:51
04/24/24 02:39
PT 13.1 Sec (11.4-14.6) 04/24/24 12:57
INR 0.99 04/24/24 12:57
Sodium Cancelled 04/24/24 02:39
Potassium Cancelled 04/24/24 02:39
BUN Cancelled 04/24/24 02:39
Glucose Cancelled 04/24/24 02:39
Calcium Cancelled 04/24/24 02:39
LDL Cholesterol, Calc 94 mg/dl 04/24/24 08:51
Medications
-
Active Medications
Generic Name Dose Route Start Last Admin
Trade Name Freq PRN Reason Stop Dose Admin
Acetaminophen 650 mg 04/24/24 02:39
Acetaminophen 650 Mg Rectal Suppository RECTAL 05/22/24 02:38
Q4HPRN PRN
GUY, mild pain, or temp >100.4F
Acetaminophen 650 mg 04/24/24 02:39
Acetaminophen 325 Mg Tablet PO 05/22/24 02:38
Q4HPRN PRN
GUY, mild pain, or temp >100.4F
Aspirin 81 mg 04/24/24 08:00 04/24/24 09:09
Aspirin 81 Mg Chewable Tablet PO 05/22/24 07:59 81 mg
DAILY ADELIA Administration
Dapagliflozin 5 mg 04/24/24 08:00 04/24/24 09:09
Dapagliflozin (Farxiga) 5 Mg Tablet PO 05/22/24 07:59 Not Given
DAILY ADELIA
Dextrose 12.5 grams 04/24/24 02:39
Dextrose 50% (0.5 Grams/Ml) 50 Ml Syringe IV 05/22/24 02:38
[id number] PRN
hypoglycemia
Protocol
Duloxetine HCl 60 mg 04/24/24 08:00 04/24/24 09:08
Duloxetine Delayed Release 60 Mg Capsule PO 05/22/24 07:59 60 mg
DAILY ADELIA Administration
Ezetimibe 10 mg 04/24/24 08:00 04/24/24 09:10
Ezetimibe (Zetia) 10 Mg Tablet PO 05/22/24 07:59 10 mg
DAILY ADELIA Administration
Gabapentin 300 mg 04/24/24 08:00 04/24/24 09:08
Gabapentin 300 Mg Capsule PO 05/22/24 07:59 300 mg
BID ADELIA Administration
Glucagon 1 mg 04/24/24 02:39
Glucagon 1 Mg Vial IM 05/22/24 02:38
PRN PRN
hypoglycemia
Protocol
Sodium Chloride 1,000 mls @ 75 mls/hr 04/24/24 08:15 04/24/24 10:33
Nss IV 1,000 mls
.[id number] ADELIA Administration
Insulin Aspart 0 units 04/24/24 07:30 04/24/24 13:36
Insulin Aspart Moderate Resistance 300 Units/3 Ml Pen.Injctr SC 05/22/24 07:29 5 units
AC ADELIA Administration
Protocol
Magnesium 84 mg 04/24/24 08:00 04/24/24 09:08
Magnesium Lactate 84 Mg Tablet PO 05/22/24 07:59 84 mg
DAILY ADELIA Administration
Metoprolol Tartrate 75 mg 04/24/24 08:00 04/24/24 09:10
Metoprolol 25 Mg Regular Release Tablet PO 05/22/24 07:59 75 mg
DAILY ADELIA Administration
Metoprolol Tartrate 50 mg 04/24/24 22:00
Metoprolol 50 Mg Regular Release Tablet PO 05/22/24 21:59
HS ADEILA
Oxycodone HCl 20 mg 04/24/24 08:00 04/24/24 09:09
Oxycontin 10 Mg Controlled Release Tablet PO 05/08/24 07:59 20 mg
Q12 ADELIA Administration
Oxycodone HCl 10 mg 04/24/24 02:39
Oxycodone 10 Mg Regular Release Tablet PO 05/08/24 02:38
Q8HPRN PRN
pain
Polyethylene Glycol 17 grams 04/24/24 02:39
Polyethylene Glycol Powder 17 Grams Packet PO 05/22/24 02:38
DAILY PRN
constipation
Sodium Chloride 0 flush 04/24/24 02:00
Sodium Chloride 0.9% (Flush) Syringe IV 05/22/24 01:59
PER PROTOCOL ADELIA
Home Medications
�Medication �Instructions �Recorded
gabapentin 300 mg capsule 300 mg PO BID 09/20/16
ezetimibe 10 mg tablet 10 mg PO DAILY 06/11/18
insulin aspart U-100 100 unit/mL 20 units SC .FOR BS>300 PRN BS>300 06/11/18
subcutaneous solution (Novolog
U-100 Insulin aspart)
oxycodone 20 mg tablet,crush 20 mg PO Q12 06/11/18
resistant,extended release 12 hr
(OxyContin)
apixaban 5 mg tablet (Eliquis) 5 mg PO BID 02/16/22
ascorbic acid (vitamin C) 500 mg 500 mg PO DAILY 02/16/22
tablet (Vitamin C With Amberly Hips)
ascorbic acid (vitamin C) 500 mg 500 mg PO DAILY 02/16/22
tablet (Vitamin C)
cholecalciferol (vitamin D3) 125 2,500 unit PO HS 02/16/22
mcg (5,000 unit) disintegrating
tablet
dapagliflozin propanediol 5 mg 5 mg PO DAILY 02/16/22
tablet (Farxiga)
diphenhydramine HCl 25 mg capsule 25 mg PO Q4HPRN PRN itching 02/16/22
(Banophen)
duloxetine 60 mg capsule,delayed 60 mg PO DAILY 02/16/22
release
epinephrine 0.3 mg/0.3 mL 0.3 mg IJ PRN PRN anaphylaxis 02/16/22
injection, auto-injector (EpiPen
2-Cezar)
ethacrynic acid 25 mg tablet 25 mg PO PRN PRN swelling 02/16/22
evolocumab 140 mg/mL subcutaneous 140 mg SQ Q2W 02/16/22
syringe (Repatha Syringe)
losartan 100 mg tablet (Cozaar) 100 mg PO DAILY 02/16/22
magnesium 100 mg capsule 100 mg PO DAILY 02/16/22
(Magnacaps)
metformin 1,000 mg tablet 1,000 mg PO BID ##0 02/16/22
metoprolol tartrate 50 mg tablet 75 mg PO DAILY 02/16/22
(Lopressor)
naloxone 4 mg/actuation nasal 4 mg intranasal DIRECTED PRN 02/16/22
spray (Narcan) overdose of oxycodone
oxycodone 10 mg tablet 10 mg PO Q8HPRN PRN pain 02/16/22
polyethylene glycol 3350 17 gram 17 grams PO DAILY PRN constipation 02/16/22
oral powder packet
vitamin B complex 1 tab PO DAILY 02/16/22
zinc 10 mg tablet 23 mg PO BID 02/16/22
aspirin 81 mg tablet,delayed 81 mg PO DAILY 04/24/24
release
rjtaenw-sleqawzstvqqr-xascshhr 250 1 tab PO Q6H PRN pain 04/24/24
mg-250 mg-65 mg tablet (Excedrin
Extra Strength)
metoprolol tartrate 50 mg tablet 50 mg PO HS 04/24/24
NIH Stroke Score
Subsequent NIH Scale
Date of Subsequent NIH Scale: 04/24/24
Time of Subsequent NIH Scale: 09:30
NIH Stroke Score
Level of Consciousness: 0 - Alert
LOC Questions: 0-Answers both correctly
LOC Commands: 0-Performs both correctly
Best Horizontal Gaze: 0-Normal
Visual Lion: 0=Normal, no visual loss
Facial Palsy: 0=Normal, symmetrical
Motor - Right Arm: 0=No drift 10 seconds
Motor - Left Arm: 0=No drift 10 seconds
Motor - Right Le-No drift 5 seconds
Motor - Left Le-No drift 5 seconds
Limb Ataxia: 0-Absent
Sensation: 0-Normal
Best Language: 0-No aphasia
Dysarthria: 0-Normal
Extinction and Inattention: 0-No abnormality
Total Score:: 0
Modified Warner (mRS) Score
Modified Warner Scale (mRS): No symptoms
Score: 0
Allergies
-
Allergies
Allergy/AdvReac Type Severity Reaction Status Date / Time
cephalexin [From Keflex] Allergy Unknown Hives Verified 04/24/24 00:03
Penicillins Allergy Hives Verified 04/24/24 00:03
pioglitazone [From Actos] Allergy Swelling Verified 04/24/24 00:10
Nuoglhc-OYH-HbS Reductase Allergy Unknown Verified 04/24/24 00:03
Inhibitor
[Jhacsxe-Knj-Hgx Reductase
Inhibitor]
sulfamethoxazole Allergy Anaphylaxis Verified 04/24/24 00:03
[From Bactrim]
trimethoprim [From Bactrim] Allergy Anaphylaxis Verified 04/24/24 00:03
some cheeses Allergy Itching Uncoded 04/24/24 00:03

Documented by User: Gerber Smith MD 04/24/24 15:41
NIH Stroke Score
NIH Stroke Score
Total Score:: 0
Modified Warner (mRS) Score
Score: 0
[2024-04-24 08:19] LABS: Glucose - Point of Care 250 mg/dl (70-99)
--- NOTE | 2024-04-24 08:50 | PTOTSP ---
Speech Language Pathology
Pt seen for cognitive-linguistic evaluation via the [place] Cognitive Assessment (MOCA), version 8.2. Pt with an overall score of 28/30 where normal range is 26-30. When writing clock, pt left out the '12,' which she stated was abnormal for her.
Recalled 4/5 words independently, but knew that last word was a color. 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 Further cognitive therapy not recommended at this time.
Pt also seen for clinical bedside swallow evaluation. P.O. trials of regular solids and thin liquids provided. Adequate mastication, bolus formation, and A-P transit noted with no oral residue. Cough x2 with fresh fruit where pt stated the 'juice
hit the back of my throat.' With thin liquids, frequent delayed wet vocal quality noted with resultant cough, which cleared wet vocal quality. Question aspiration. Pt stated she has been coughing with P.O. intake for months, although she reported
wet vocal quality at rest at times in absence of P.O. intake. Pt in agreement with instrumental swallowing assessment.
Recommend:
(1) VSE
(2) Regular solids/thin liquids pending VSE
(3) Aspiration precautions pending VSE: sit upright, slow rate, cough if wet vocal quality noted
(4) Meds as tolerated
(5) COPY TECHNICIAN to continue to follow for dysphagia
[2024-04-24] MEDS: NOVOLOG FLEXPEN-MODERATE RESISTANCE 5 UNITS SC ×3 (09:07→18:11)
[2024-04-24] MEDS: MAG-TAB SR 84 MG PO (09:08)
[2024-04-24] MEDS: CYMBALTA DELAYED RELEASE 60 MG PO (09:08)
[2024-04-24] MEDS: NEURONTIN 300 MG PO ×2 (09:08→20:40)
[2024-04-24] MEDS: LOW STRENGTH ASPIRIN 81 MG PO (09:09)
[2024-04-24] MEDS: FARXIGA PO (09:09)
[2024-04-24] MEDS: OXYCONTIN (CONTROLLED RELEASE) 20 MG PO ×2 (09:09→20:40)
[2024-04-24] MEDS: ZETIA 10 MG PO (09:10)
[2024-04-24] MEDS: LOPRESSOR 75 MG PO (09:10)
[2024-04-24 09:25] LABS: Hematocrit 45.4 % (37.0-47.0); Hemoglobin 15.4 g/dL (12.0-16.0); Mean Corp Hgb Conc. 33.9 g/dL (33.0-37.0); Mean Corpuscular Hgb 31.6 pg (27.0-31.0); Mean Platelet Volume 10.4 fL (7.4-10.4); Platelet Count 314 10^3/uL (130-400); Red Blood Cell Count 4.88 10^6/uL (4.20-5.40); Red Cell Dist. Width 14.4 % (11.5-14.5); White Blood Cell Count 10.7 10^3/uL (4.8-10.8)
--- NOTE | 2024-04-24 09:54 | CON.ONC ---
Impression
Impression
Multiple ring-enhancing lesions right posterior brain largest measuring 1.5 cm
Transient weakness
MASH
No obvious abnormality on CT or mammogram to suggest primary
Plan
Plan
Await consultation by neurosurgery
Outpatient PET CT scan is unlikely to provide additional insight as CT is essentially unremarkable with the exception of of 2.5 cm mediastinal lymph node
Differential includes infectious etiology, NHL or metastatic lesion
Evaluate LDH
Patient History
History of Present Illness
Pleasant 68-year-old female with history of diabetes, hypertension, chronic elevated liver enzymes likely fatty liver, presented to the hospital after sudden onset of the left leg weakness she calling in for an knee gave way and buckled up, she says
she was preparing dinner and not a dinner tray to get up on the table she could not but did not fall, denies any dizziness or any syncope, no speech disturbance, no visual change or any facial droop, or any chest pain shortness of breath or fever or
chill, admits she was doing well prior to the event, no urinary or GI symptoms, denies any weight change, no rectal bleed or hematuria, no cough or congestion. Admits she has been having a chronic headache and eventually had an MRI as an outpatient
and the result below show for ring-enhancing lesion in the right side of the brain, patient aware about that and saw her primary care physician and neurology as an outpatient. CT chest, abdominal pelvis with IV contrast which failed to show clear
evidence of a primary malignancy amenable to biopsy. An outpatient PET scan scheduled for May 01. Currently she feels better.
Past-Medical/Surgical History
Past Medical History:
Hypertension
Diabetes mellitus
Chronic low elevated liver enzyme mildly likely fatty liver
Chronic diastolic congestive heart failure
Coronary artery disease
Atrial fibrillation
Thyroid nodule
Ascending thoracic aortic aneurysm 4.5 cm.
Type 2 diabetes mellitus
History of retinal hemorrhage in the right eye
Social history:
Lives at home with her , denies smoking and occasionally uses alcohol and no drug and she is independent.
Patient is a PT
Family history: Father had lymphoma as he was working on some chemical industry
Patient Medication
�Medication �Instructions �Recorded �Confirmed �Last Taken �Type
gabapentin 300 mg capsule 300 mg PO BID 09/20/16 04/24/24 02/16/22 05:10 History
ezetimibe 10 mg tablet 10 mg PO DAILY 06/11/18 04/24/24 02/16/22 05:10 History
insulin aspart U-100 100 unit/mL 20 units SC .FOR BS>300 PRN BS>300 06/11/18 04/24/24 Unknown History
subcutaneous solution (Novolog
U-100 Insulin aspart)
oxycodone 20 mg tablet,crush 20 mg PO Q12 06/11/18 04/24/24 06/11/18 History
resistant,extended release 12 hr
(OxyContin)
apixaban 5 mg tablet (Eliquis) 5 mg PO BID 02/16/22 04/24/24 02/12/22 20:00 History
ascorbic acid (vitamin C) 500 mg 500 mg PO DAILY 02/16/22 04/24/24 02/15/22 08:00 History
tablet (Vitamin C With Amberly Hips)
ascorbic acid (vitamin C) 500 mg 500 mg PO DAILY 02/16/22 04/24/24 02/15/22 08:00 History
tablet (Vitamin C)
cholecalciferol (vitamin D3) 125 2,500 unit PO HS 02/16/22 04/24/24 02/15/22 20:00 History
mcg (5,000 unit) disintegrating
tablet
dapagliflozin propanediol 5 mg 5 mg PO DAILY 02/16/22 04/24/24 02/15/22 08:00 History
tablet (Farxiga)
diphenhydramine HCl 25 mg capsule 25 mg PO Q4HPRN PRN itching 02/16/22 04/24/24 02/14/22 History
(Banophen)
duloxetine 60 mg capsule,delayed 60 mg PO DAILY 02/16/22 04/24/24 02/15/22 08:00 History
release
epinephrine 0.3 mg/0.3 mL 0.3 mg IJ PRN PRN anaphylaxis 02/16/22 04/24/24 Unknown History
injection, auto-injector (EpiPen
2-Cezar)
ethacrynic acid 25 mg tablet 25 mg PO PRN PRN swelling 02/16/22 04/24/24 Unknown History
evolocumab 140 mg/mL subcutaneous 140 mg SQ Q2W 02/16/22 04/24/24 02/16/22 05:10 History
syringe (Repatha Syringe)
losartan 100 mg tablet (Cozaar) 100 mg PO DAILY 02/16/22 04/24/24 02/16/22 05:10 History
magnesium 100 mg capsule 100 mg PO DAILY 02/16/22 04/24/24 02/16/22 05:10 History
(Magnacaps)
metformin 1,000 mg tablet 1,000 mg PO BID ##0 02/16/22 04/24/24 02/15/22 20:30 Rx
metoprolol tartrate 50 mg tablet 75 mg PO DAILY 02/16/22 04/24/24 02/16/22 05:10 History
(Lopressor)
naloxone 4 mg/actuation nasal 4 mg intranasal DIRECTED PRN 02/16/22 04/24/24 Unknown History
spray (Narcan) overdose of oxycodone
oxycodone 10 mg tablet 10 mg PO Q8HPRN PRN pain 02/16/22 04/24/24 02/16/22 05:15 History
polyethylene glycol 3350 17 gram 17 grams PO DAILY PRN constipation 02/16/22 04/24/24 02/12/22 History
oral powder packet
vitamin B complex 1 tab PO DAILY 02/16/22 04/24/24 02/15/22 08:00 History
zinc 10 mg tablet 23 mg PO BID 02/16/22 04/24/24 02/15/22 20:00 History
aspirin 81 mg tablet,delayed 81 mg PO DAILY 04/24/24 04/24/24 Unknown History
release
ppvnhqv-ufzybxijyxwdk-whyoguet 250 1 tab PO Q6H PRN pain 04/24/24 04/24/24 Unknown History
mg-250 mg-65 mg tablet (Excedrin
Extra Strength)
metoprolol tartrate 50 mg tablet 50 mg PO HS 04/24/24 04/24/24 Unknown History
Active Medications
Generic Name Dose Route Start Last Admin
Trade Name Freq PRN Reason Stop Dose Admin
Acetaminophen 650 mg 04/24/24 02:39
Acetaminophen 650 Mg Rectal Suppository RECTAL 05/22/24 02:38
Q4HPRN PRN
GUY, mild pain, or temp >100.4F
Acetaminophen 650 mg 04/24/24 02:39
Acetaminophen 325 Mg Tablet PO 05/22/24 02:38
Q4HPRN PRN
GUY, mild pain, or temp >100.4F
Aspirin 81 mg 04/24/24 08:00 04/24/24 09:09
Aspirin 81 Mg Chewable Tablet PO 05/22/24 07:59 81 mg
DAILY ADELIA Administration
Dapagliflozin 5 mg 04/24/24 08:00 04/24/24 09:09
Dapagliflozin (Farxiga) 5 Mg Tablet PO 05/22/24 07:59 Not Given
DAILY ADELIA
Dextrose 12.5 grams 04/24/24 02:39
Dextrose 50% (0.5 Grams/Ml) 50 Ml Syringe IV 05/22/24 02:38
[id number] PRN
hypoglycemia
Protocol
Duloxetine HCl 60 mg 04/24/24 08:00 04/24/24 09:08
Duloxetine Delayed Release 60 Mg Capsule PO 05/22/24 07:59 60 mg
DAILY ADELIA Administration
Ezetimibe 10 mg 04/24/24 08:00 04/24/24 09:10
Ezetimibe (Zetia) 10 Mg Tablet PO 05/22/24 07:59 10 mg
DAILY ADELIA Administration
Gabapentin 300 mg 04/24/24 08:00 04/24/24 09:08
Gabapentin 300 Mg Capsule PO 05/22/24 07:59 300 mg
BID ADELIA Administration
Glucagon 1 mg 04/24/24 02:39
Glucagon 1 Mg Vial IM 05/22/24 02:38
PRN PRN
hypoglycemia
Protocol
Sodium Chloride 1,000 mls @ 75 mls/hr 04/24/24 08:15
Nss IV
.[id number] ADELIA
Insulin Aspart 0 units 04/24/24 07:30 04/24/24 09:07
Insulin Aspart Moderate Resistance 300 Units/3 Ml Pen.Injctr SC 05/22/24 07:29 5 units
AC ADELIA Administration
Protocol
Magnesium 84 mg 04/24/24 08:00 04/24/24 09:08
Magnesium Lactate 84 Mg Tablet PO 05/22/24 07:59 84 mg
DAILY ADELIA Administration
Metoprolol Tartrate 75 mg 04/24/24 08:00 04/24/24 09:10
Metoprolol 25 Mg Regular Release Tablet PO 05/22/24 07:59 75 mg
DAILY ADELIA Administration
Metoprolol Tartrate 50 mg 04/24/24 22:00
Metoprolol 50 Mg Regular Release Tablet PO 05/22/24 21:59
HS ADELIA
Oxycodone HCl 20 mg 04/24/24 08:00 04/24/24 09:09
Oxycontin 10 Mg Controlled Release Tablet PO 05/08/24 07:59 20 mg
Q12 ADELIA Administration
Oxycodone HCl 10 mg 04/24/24 02:39
Oxycodone 10 Mg Regular Release Tablet PO 05/08/24 02:38
Q8HPRN PRN
pain
Polyethylene Glycol 17 grams 04/24/24 02:39
Polyethylene Glycol Powder 17 Grams Packet PO 05/22/24 02:38
DAILY PRN
constipation
Sodium Chloride 0 flush 04/24/24 02:00
Sodium Chloride 0.9% (Flush) Syringe IV 05/22/24 01:59
PER PROTOCOL ADELIA
Review of Systems
-
12 point review systems fails to elicit additional complaints other than those reviewed in the HPI
Physical Exam
-
Physical exam:
General: Awake, alert and oriented x3, not in distress and holds appropriate conversation.
HEENT: No active discharge, ecchymosis or bruising, moist lips, tongue and mucous membrane.
Eyes: No discharge or red conjunctiva, no nystagmus, pupils are reactive and equal
Neck:Supple no goiter.
Respiratory: Normal AP contour and diameter, normal chest wall movement, normal respiratory effort, no respiratory distress,
Lungs: Good air entry bilaterally, no wheezing or rhonchi, no rales or crackles
Heart: regular, normal rate no murmur appreciated
Gastrointestinal: Positive bowel sounds, soft, nontender, no guarding or organomegaly
Extremities: No pitting edema, weak bilateral dorsalis pedis pulses, and both feet chronically cold and mildly purplish in color, good range of motion
Skin: Warm and dry, no ulceration, normal color chronic discoloration of the feet bluish tint,not cyanotic
Neurological: Awake, alert and oriented x3, cranial nerve II-XII grossly intact, extension intention intact, cerebellar sign intact speech clear and comprehensive, good muscle tone, normal sensory and motor function, no facial droop, visual acuity
intact, extraocular muscle intact
Psychiatric: Normal mood, normal thought and judgment, normal affect,
Labs
Lab Results
WBC 10.7 10^3/uL (4.8-10.8) 04/24/24 08:51
RBC 4.88 10^6/uL (4.20-5.40) 04/24/24 08:51
Hgb 15.4 g/dL (12.0-16.0) 04/24/24 08:51
Hct 45.4 % (37.0-47.0) 04/24/24 08:51
MCV 93.0 fL (81.0-99.0) 04/24/24 08:51
MCH 31.6 pg (27.0-31.0) H 04/24/24 08:51
MCHC 33.9 g/dL (33.0-37.0) 04/24/24 08:51
RDW 14.4 % (11.5-14.5) 04/24/24 08:51
Plt Count 314 10^3/uL (130-400) 04/24/24 08:51
MPV 10.4 fL (7.4-10.4) 04/24/24 08:51
Abs Immat Gran (auto) 0.1 10^3/uL (0-0.05) H 04/24/24 00:30
Absolute Neuts (auto) 5.0 10^3/uL (1.4-6.5) 04/24/24 00:30
Absolute Lymphs (auto) 3.4 10^3/uL (1.2-3.4) 04/24/24 00:30
Absolute Monos (auto) 0.8 10^3/uL (0.1-0.6) H 04/24/24 00:30
Absolute Eos (auto) 0.9 10^3/uL (0-0.7) H 04/24/24 00:30
Absolute Basos (auto) 0.2 10^3/uL (0-0.2) 04/24/24 00:30
Immature Gran % 1.1 % (0-0.5) H 04/24/24 00:30
Neutrophils % 48.1 % (42.2-75.2) 04/24/24 00:30
Lymphocytes % 32.3 % (20.5-51.1) 04/24/24 00:30
Monocytes % 7.7 % (1.7-9.3) 04/24/24 00:30
Eosinophils % 8.9 % (0-6) H 04/24/24 00:30
Basophils % 1.9 % (0-2) 04/24/24 00:30
Creatinine Cancelled 04/24/24 02:39
Vital Signs
Vital Signs
Temp Pulse Resp BP Pulse Ox
97.6 F 81 18 162/87 94
04/24/24 08:14 04/24/24 09:10 04/24/24 08:14 04/24/24 09:10 04/24/24 09:05
[2024-04-24 10:07] LABS: HDL Cholesterol 51 mg/dl; LDL Cholesterol, Calculated 94 mg/dl; Total Cholesterol 212 mg/dl (50-199); Triglyceride 336 mg/dl (10-149); Very Low Density Lipoprotein 67 mg/dl (0-30)
[2024-04-24] MEDS: NSS 1000 IV ×2 (10:33→17:38)
[2024-04-24 10:49] LABS: Glycohemoglobin (HgbA1c) 11.3 % (4.0-5.6)
--- NOTE | 2024-04-24 12:30 | CON.NS ---
Consultation
-
Date/Time Consultation Performed: 04/24/2024; 12:35 pm
Performing Provider: Haven
Chief Complaint
History of Present Illness
This is a neurosurgical consultation on a 68-year-old female with a history of diabetes, hypertension, elevated liver enzymes, who presents with progressive left leg weakness. She also reports ongoing symptoms of chronic headache. She did have an
MRI as an outpatient which demonstrated multiple ring-enhancing lesions on the right side of the brain. She was being worked up for this by her primary care physician, and in fact had an outpatient PET scan scheduled for May 01. She already had a
CT of the chest/abdomen/pelvis which did not demonstrate any obvious evidence of primary malignancy.
Patient seen and examined. She reports that her MRI was performed due to just symptoms of headache, without any focal neurological symptoms such as weakness. Yesterday, she had sudden onset of left leg weakness causing her leg to give way and
buckle.
Of note, she also has a past medical history of atrial fibrillation, and is post be on Eliquis, but given that she ran out of medications, she has not been taking it.
Review of Systems
-
10 point review of systems including constitutional, ENT, cardiovascular, respiratory, GI, , endocrinologic, hematologic, neurologic, musculoskeletal, was performed, was negative except for stated in HPI.
Medication and Allergies
Home Medications
Home Medications
�Medication �Instructions �Recorded
gabapentin 300 mg capsule 300 mg PO BID 09/20/16
ezetimibe 10 mg tablet 10 mg PO DAILY 06/11/18
insulin aspart U-100 100 unit/mL 20 units SC .FOR BS>300 PRN BS>300 06/11/18
subcutaneous solution (Novolog
U-100 Insulin aspart)
oxycodone 20 mg tablet,crush 20 mg PO Q12 06/11/18
resistant,extended release 12 hr
(OxyContin)
apixaban 5 mg tablet (Eliquis) 5 mg PO BID 02/16/22
ascorbic acid (vitamin C) 500 mg 500 mg PO DAILY 02/16/22
tablet (Vitamin C With Amberly Hips)
ascorbic acid (vitamin C) 500 mg 500 mg PO DAILY 02/16/22
tablet (Vitamin C)
cholecalciferol (vitamin D3) 125 2,500 unit PO HS 02/16/22
mcg (5,000 unit) disintegrating
tablet
dapagliflozin propanediol 5 mg 5 mg PO DAILY 02/16/22
tablet (Farxiga)
diphenhydramine HCl 25 mg capsule 25 mg PO Q4HPRN PRN itching 02/16/22
(Banophen)
duloxetine 60 mg capsule,delayed 60 mg PO DAILY 02/16/22
release
epinephrine 0.3 mg/0.3 mL 0.3 mg IJ PRN PRN anaphylaxis 02/16/22
injection, auto-injector (EpiPen
2-Cezar)
ethacrynic acid 25 mg tablet 25 mg PO PRN PRN swelling 02/16/22
evolocumab 140 mg/mL subcutaneous 140 mg SQ Q2W 02/16/22
syringe (Repatha Syringe)
losartan 100 mg tablet (Cozaar) 100 mg PO DAILY 02/16/22
magnesium 100 mg capsule 100 mg PO DAILY 02/16/22
(Magnacaps)
metformin 1,000 mg tablet 1,000 mg PO BID ##0 02/16/22
metoprolol tartrate 50 mg tablet 75 mg PO DAILY 02/16/22
(Lopressor)
naloxone 4 mg/actuation nasal 4 mg intranasal DIRECTED PRN 02/16/22
spray (Narcan) overdose of oxycodone
oxycodone 10 mg tablet 10 mg PO Q8HPRN PRN pain 02/16/22
polyethylene glycol 3350 17 gram 17 grams PO DAILY PRN constipation 02/16/22
oral powder packet
vitamin B complex 1 tab PO DAILY 02/16/22
zinc 10 mg tablet 23 mg PO BID 02/16/22
aspirin 81 mg tablet,delayed 81 mg PO DAILY 04/24/24
release
wewvwws-dxncrgnfrknnn-sgwlnpzm 250 1 tab PO Q6H PRN pain 04/24/24
mg-250 mg-65 mg tablet (Excedrin
Extra Strength)
metoprolol tartrate 50 mg tablet 50 mg PO HS 04/24/24
Allergies
Allergies
Allergy/AdvReac Type Severity Reaction Status Date / Time
cephalexin [From Keflex] Allergy Unknown Hives Verified 04/24/24 00:03
Penicillins Allergy Hives Verified 04/24/24 00:03
pioglitazone [From Actos] Allergy Swelling Verified 04/24/24 00:10
Ilwqwex-CAR-CdJ Reductase Allergy Unknown Verified 04/24/24 00:03
Inhibitor
[Ngovtls-Kbe-Byo Reductase
Inhibitor]
sulfamethoxazole Allergy Anaphylaxis Verified 04/24/24 00:03
[From Bactrim]
trimethoprim [From Bactrim] Allergy Anaphylaxis Verified 04/24/24 00:03
some cheeses Allergy Itching Uncoded 04/24/24 00:03
Physical Exam
-
Exam:
Awake, alert, no apparent distress.
Pupils are equal round reactive to light
Extraocular movements are full without nystagmus
Face is symmetric, tongue is midline
Motor: 5/5 strength bilaterally in the upper extremities and lower extremities, with no evidence of pronator drift.
Sensation to light touch is intact
Gait not tested
Head is normocephalic atraumatic
Neck is supple
Breathing nonlabored
Abdomen is soft
Legs are warm, nonedematous
MRI of the brain with and without contrast performed on 03/31/2024 demonstrates multiple patchy areas of enhancement located within the right basal ganglia, right posterior frontal lobe, right insula. There is associated FLAIR signal hyperdensities
surrounding these areas. Differential diagnosis could be early infection versus ischemia, and possibly brain metastasis, but as this demonstrates only unilateral nature, with FLAIR signal hyperdensity not significantly at a proportion compared with
lesions, Also with mild restricted diffusion, ischemia highly probable.
Assessment / Plan
-
Is a 68-year-old female who presents with acute onset right leg weakness. She did have a brain MRI performed approximately 3 weeks prior which demonstrated multiple right-sided patchy, small areas of enhancement, with mild restricted diffusion.
There is minimal FLAIR signal hyperintensity surrounding these areas. She only had symptoms of headaches at that time.
She is being worked up for a neoplastic process. However, given her history of atrial fibrillation, off Eliquis, and the sudden onset of her symptomatology, would recommend getting a repeat MRI of the brain with and without contrast to rule out
stroke/TIA versus progression of brain lesions/neoplasm. Also, possible focal seizure is in differential diagnosis for symptomatology yesterday.
Await neurology input
Will follow-up after brain MRI.
Hold on any steroids.
[2024-04-24 13:02] LABS: Glucose - Point of Care 262 mg/dl (70-99)
[2024-04-24 13:16] LABS: INR 0.99; PT 13.1 Sec (11.4-14.6)
--- NOTE | 2024-04-24 16:47 | PTCARENOTE ---
Pt AAO x3, NASH; OOB to chair/ambulates to BR with minimal assistance; no c/o weakness/dizziness. Pt c/o persistent bilat frontal headache. Denies Lt leg weakness. NIHSS 0. VSS. Telemetry: afib. On room air- pulse ox 95%, no SOB noted. Abd
obese,sfot; addis PO well. Voids in BR without difficulty. IVF's NSS @ 75 ml/hr infusing via Rt forearm site without sx of infiltration. Pt currently off unit for IR procedure. Will continue to monitor.
--- NOTE | 2024-04-24 17:05 | W.PN.UPDATE ---
Update Note
Progress Note Update
- Unsuccessful LP attempt (patient had difficult laying prone and DJD)
- Pt tolerated well.
--- NOTE | 2024-04-24 17:34 | PTCARENOTE ---
Pt returned to room form IR s/p attempted LP. Pt AAO x3, NASH; ambulatory to bed with assist x1/walker, no c/o weakness BLE. Bandaids intact to lower back; no edema/drainage noted. Will continue to monitor.
[2024-04-24] MEDS: GLUCOPHAGE 1000 MG PO (17:40)
[2024-04-24 18:11] LABS: Glucose - Point of Care 267 mg/dl (70-99)
[2024-04-24] MEDS: NOVOLOG FLEXPEN 5 UNITS SC (18:12)
[2024-04-24 19:34] LABS: AFP Male/Tumor Marker 2.69 ng/ml
[2024-04-24 19:34] LABS: Hepatitis B Surface Antigen Negative (Negative)
[2024-04-24 19:51] LABS: Hepatitis C Antibody Negative (Negative)
[2024-04-24 20:50] LABS: Hepatitis B Core Ab, IgM Negative (Negative)
[2024-04-24 20:58] LABS: Hepatitis A Antibody, Total Borderline (Negative)
[2024-04-24 21:14] LABS: Glucose - Point of Care 241 mg/dl (70-99)
[2024-04-24] MEDS: LANTUS 0.12 UNITS SC (21:16)
[2024-04-24] MEDS: LOPRESSOR 50 MG PO (21:17)
[2024-04-25] VITALS (9 sets, daily range): BP systolic 64–147; BP diastolic 40–85; BMI 40.0
[2024-04-25] MEDS: BENADRYL 25 MG PO ×2 (03:13→19:53)
--- NOTE | 2024-04-25 06:41 | W.PN.HOSP.TC ---
Addendum entered and electronically signed by Susan Clancy MD 04/25/24 16:32:
I personally performed a history and physical exam of the patient and discussed management with the resident. I reviewed the resident's note and agree with the documented findings and plan of care HPI/CC.
Has some dysuria.
68-year-old female Presented to the hospital with acute onset of left leg weakness. Patient has been having chronic headaches and had an MRI as outpatient which showed calcifications. She also had a CT of the chest abdomen pelvis. She was
scheduled for a PET scan as outpatient.
CTA-calcific plaque within the carotid bulb less than 50% stenosis. Aneurysm of the ascending aorta 4.9 cm. Main pulmonary trunk dilated 3.9 cm suggestive of pulmonary artery hypertension. 1.9 cm right thyroid nodule
Echo 04/24/2024-normal LV size and systolic function. Ejection fraction 60 to 65%. Moderate concentric LVH. Diastolic function indeterminate. Normal RV size. Normal RV systolic function. Mild AI.
I personally performed a history and physical exam of the patient and discussed management with the resident. I reviewed the resident's note and agree with the documented findings and plan of care HPI/CC.
# Left leg weakness
Rim-enhancing lesions in the brain
Differentials include metastasis, CVA, infections
Repeat MRI-focal area of abnormal restricted diffusion in the right posterior paramedian parietal lobe no evidence of enhancement likely focus of acute to subacute infarction.
More subtle region of increased diffusion weighted signal in the right paramedian frontal lobe and extending into the white matter suspicious for an area of acute to subacute infarction.
Multiple regions of persistent enhancement in the right cerebral hemisphere without significant change since March 31, 2024 felt to be mostly subacute infarction with persistent enhancement. Neoplastic disease is not completely excluded and in the
differential.
She admitted to not taking Eliquis for the past 2 weeks unclear if this could be the reason
Lumbar puncture finally done today even though attempted yesterday
Since she is off of Eliquis this would be the perfect timing to obtain LP. Restart Eliquis later tonight when okay with interventional radiology
No vegetations on echo
Toxoplasma IgM/IgG ordered
Infectious disease consulted
Oncology already following
Per discussion with neurology old stroke may also have appearance as she has. However she has not missed any doses of Eliquis until the previous MRI which was on March 31. She also has been having headaches for the past 6 months leading to possible
other etiologies. Await LP
Would also get a PET scan as scheduled
# Acute kidney injury
Possibly could be an injury
Creatinine better
IV fluids as she also received contrast for CTA
Restart Jardiance and losartan
Follow creatinine
# Constipation-Bowel regimen
# Paroxysmal atrial fibrillation cardioversion October 2016
Ablation December 2016
Did not take Eliquis for 2 weeks as she ran out
Continue Eliquis 5 twice daily restart tonight if okay with IR
# Hypertension-continue metoprolol. Restart losartan tomorrow
# Diabetes with neuropathy-
Restart Farxiga
Continue metformin
Lantus insulin 18 units at night, NovoLog 7 AC plus sliding scale coverage
Hemoglobin A1c 11.3
She may need to be on insulin moving forward
Continue gabapentin for neuropathy
# Constipation-bowel regimen ordered
# Sleep apnea on CPAP
# Chronic heart failure with preserved ejection fraction. Restart Ethacrynic acid
# Hyperlipidemia-continue Zetia, Repatha
# History of herniated disks and degenerative joint disease-with microdiscectomy
# History of DRESS Syndrome from Bactrim
# Ascending aortic aneurysm 4.9 cm
# Hepatic steatosis
# 2.2 cm region of subtle increased attenuation in the inferior lateral margin of the right lobe-needs MRI
# Diverticulosis
# 1.9 cm right thyroid nodule. Outpatient workup
# DVT prophylaxis
# Full code
Discussed with neurology
D/W ID
Time more than 50 min
Original Note:
Today's Communication/Plan
-
Cholesterol lowering diet
fu with neuro OP
- reattempt LP
Assessment / Plan
Assessment / Plan
LP
Creat
UA
68-year-old female with history of coronary disease, diabetes, hyperlipidemia, A-fib and ran out of the Eliquis for 2-week and not taking it, presents with a sudden weakness of the left leg which resolved in the ER during exam and laying down, also
she has a chronic headache while the MRI on March 31 showed multiple ring-enhancing lesion on the right cerebral hemisphere.
#Left leg weakness,
PVD vs stroke versus related to the ring-enhancing lesion in the right cerebral hemisphere, vs metastatic disease.
- neurology input appreciated
- NIH score 1 in the ER
- CT and CTA do not show any evidence of an acute infarct or large vessel occlusion
- possibility of subacute infarction
- LP unsuccessful under fluoro on 04/25/24
- reattempt LP to help rule out infectious process
- t/c PET scan
- repeat Brain MRI with and w/o contrast: Focal area of abnormal restricted diffusion in the right posterior paramedian parietal lobe, cortical morphology, with no evidence for enhancement. This likely represents a focus of acute to subacute
infarction
- repeat MRI in 3-4 weeks
- -Initiate home Eliquis 5mg BID when recovered from LP today.( after 12 hrs)
- Neuro: For home PRN headache control, recommend 10 mg TID Compazine, 50 mg Sumatriptan PRN (Limit this to 2 days of pola week only)
- Will need neurology outpatient following
#Acute kidney injury,
- present on admission- now resolved
# Urinary incontinence- likely stress incont.
- check UA and culture
#Diabetes mellitus
- Continue insulin and monitor blood sugar.
- HbA1C 11.3
- hold farxiga with elevated creat.
- continue metformin
#Chronic elevated liver enzymes likely secondary to fatty liver vs mets or Liver lesion
- check CT w contrast abd/pelvis
- viral hep panel pending
# Paroxysmal A-fib
- ran out of eliquis 2 weeks ago
- EKG : ATRIAL FLUTTER WITH VARIABLE A-V BLOCK
- restart Eliquis after neuro recs
#Hypertension- on lasartan at home- hold for now-
#Coronary artery disease- switched metoprolol to propranolol given hx of headaches
#Chronic pain syndrome on narcotic.- continue oxycontin
#Peripheral neuropathy- continue gabapentin and duloxetine
# Sleep apnea on CPAP
# Chronic heart failure with preserved ejection fraction. Hold ethacrynic acid with elevated creatinine
# Hyperlipidemia-continue Zetia, Repatha
# History of herniated disks and degenerative joint disease-with microdiscectomy
# History of DRESS Syndrome from Bactrim
# Ascending aortic aneurysm 4.9 cm
# Hepatic steatosis
# 2.2 cm region of subtle increased attenuation in the inferior lateral margin of the right lobe-needs MRI
# Diverticulosis
# 1.9 cm right thyroid nodule. Outpatient workup
CODE STATUS: full code
DVT prophylaxis: Will SCD for now in case Of any intervention otherwise if no intervention planned can be started on pharmacologic prophylaxis.
Anticipated Discharge: Within 24 hours
Subjective/Interval History
-
Date of Service: April 25, 2024
Objective Data
-
Labs:
Laboratory Results
04/25/24
06:00
WBC Pending
Hgb Pending
Hct Pending
Plt Count Pending
Sodium Pending
Potassium Pending
Chloride Pending
Carbon Dioxide Pending
BUN Pending
Creatinine Pending
Glucose Pending
Calcium Pending
Vital Signs:
Vital Signs
Temp Pulse Resp BP Pulse Ox
97.9 F 80 20 118/63 93
04/25/24 03:28 04/25/24 03:28 04/25/24 03:28 04/25/24 03:28 04/25/24 03:28
I&O
04/23/24 04/24/24 04/25/24
06:59 06:59 06:59
Intake Total 1879
Balance 1879
Review of Systems
-
History Source: Patient
Constitutional: Denies Fever
Respiratory: Denies Cough
Cardiac: Denies Chest Pain
Abdomen/GI: Denies Abdominal Pain
Musculoskeletal: Denies Joint Pain
Neuro: Denies Weakness
Physical Exam
-
General: Well Developed, Well Nourished and No Apparent Distress
HEENT: Normocephalic and Atraumatic
Respiratory: Clear to Auscultation
Cardiac: Regular Rhythm
GI: Soft and Nontender
Skin: Warm and Dry
Neuro: Awake, Alert, Oriented, AO x 3 and Nonfocal/Grossly Intact
Psych: Calm
[2024-04-25] MEDS: NSS 1000 IV (07:24)
[2024-04-25] MEDS: MAG-TAB SR 84 MG PO (08:36)
[2024-04-25] MEDS: CYMBALTA DELAYED RELEASE 60 MG PO (08:36)
[2024-04-25] MEDS: OXYCONTIN (CONTROLLED RELEASE) 20 MG PO ×2 (08:36→19:53)
[2024-04-25] MEDS: LOW STRENGTH ASPIRIN 81 MG PO (08:36)
[2024-04-25] MEDS: GLUCOPHAGE 1000 MG PO ×2 (08:36→17:07)
[2024-04-25] MEDS: ZETIA 10 MG PO (08:36)
[2024-04-25] MEDS: NEURONTIN 300 MG PO ×2 (08:36→19:53)
[2024-04-25 08:46] LABS: Glucose - Point of Care 277 mg/dl (70-99)
[2024-04-25] MEDS: NOVOLOG FLEXPEN-MODERATE RESISTANCE 5 UNITS SC (08:46)
[2024-04-25] MEDS: NOVOLOG FLEXPEN 5 UNITS SC ×3 (08:47→16:19)
[2024-04-25] MEDS: LOPRESSOR PO (09:01)
[2024-04-25 09:37] LABS: % Basophils 1.3 % (0-2); % Eosinophils 7.3 % (0-6); % Immature Granulocytes 0.8 % (0-0.5); % Lymphocytes 30.6 % (20.5-51.1); % Monocytes 7.2 % (1.7-9.3); % Neutrophils 52.8 % (42.2-75.2); Absolute Basophils 0.1 10^3/uL (0-0.2); Absolute Eosinophils 0.8 10^3/uL (0-0.7); Absolute Immature Granulocytes 0.1 10^3/uL (0-0.05); Absolute Lymphocytes 3.2 10^3/uL (1.2-3.4); Absolute Monocytes 0.7 10^3/uL (0.1-0.6); Absolute Neutrophils 5.5 10^3/uL (1.4-6.5); Hematocrit 44.5 % (37.0-47.0); Hemoglobin 14.8 g/dL (12.0-16.0); Mean Corp Hgb Conc. 33.3 g/dL (33.0-37.0); Mean Corpuscular Hgb 31.2 pg (27.0-31.0); Mean Corpuscular Volume 93.9 fL (81.0-99.0); Mean Platelet Volume 10.8 fL (7.4-10.4); Nucleated Red Blood Cells % 0 %; Platelet Count 329 10^3/uL (130-400); Red Blood Cell Count 4.74 10^6/uL (4.20-5.40); Red Cell Dist. Width 14.5 % (11.5-14.5); White Blood Cell Count 10.3 10^3/uL (4.8-10.8)
[2024-04-25 09:40] LABS: Blood Urea Nitrogen 23 mg/dl (7-17); Calcium 9.9 mg/dl (8.4-10.2); Carbon Dioxide 26 mmol/L (22-30); Chloride 99 mmol/L (98-107); Estimated Creatinine Clearance 74 ml/min; Glucose 230 mg/dl (70-99); Potassium 4.5 mmol/L (3.5-5.1); Sodium 138 mmol/L (135-145); eGFR > 60.00
[2024-04-25] MEDS: INDERAL 40 MG PO ×2 (10:36→19:53)
[2024-04-25] MEDS: NOVOLIN N vial 0.1 UNITS SC (10:43)
[2024-04-25 11:08] LABS: ALT (SGPT) 40 U/L (0-35); AST (SGOT) 126 U/L (14-36); Albumin 4.4 g/dl (3.5-5.0); Alkaline Phosphatase 70 U/L (38-126); Direct Bilirubin 0.2 mg/dl (0.0-0.4); Total Bilirubin 0.5 mg/dl (0.2-1.3); Total Protein 6.9 g/dl (6.3-8.2)
--- NOTE | 2024-04-25 11:57 | W.PN.NEURO.1 ---
Addendum entered and electronically signed by Gerber Smith MD 04/25/24 13:00:
I saw and evaluated the patient, reviewed note by APPLICATION SUPPORT agatha ramires and agree with findings with following commants:
68 year old woman with atrial fibrillation, diabetes, CHF, obesity presenting due to around 1 hour of left leg weakness. Symptoms resolved. Patient feeling well. Unsuccessful LP yesterday.
Brain MRI images and report reviewed
Impressions:
1) Acute stroke of the right frontal lobe near the leg area of the homunculus fits with her transient symptoms of left leg weakness, likely due to atrial fibrillation as not taking anticoagulation for past 3 weeks, no significant carotid stenosis
as source on CTA head/neck
2) Headaches for 6 months led to obtaining brain MRI at end of March with abnormal results, some component of migraine with mild nausea and photophobia, probably an element of medication overuse headache with frequently daily use of Excedrin
migraine for months now. No fevers or chills, B symptoms, unusual weight loss.
3) Abnormal brain MRI, stable abnormalities on right frontal lobe, right insular region and right basal ganglia which appear similar compared to previous brain MRI. Hopefully these are subacute ischemic strokes that were minimally symptomatic
occurring sometimes in the several weeks prior to her March brain MRI, the repeated brain MRI images to not suggest progression of these lesions or surrounding edema (argues against neoplasm), and patient has been not taking Eliquis for at least past
3 weeks so context also would argue in favor of ischemic stroke from atrial fibrillation. Unlikely given the context along with her clinical picture that these represent infection or abscess. Metastatic malignancy will remain in differential
diagnosis. No obvious primary malignancy from thyroid, breast, or abdomen/pelvis on scans so far.
4) Atrial fibrillation not taking anticoagulation for at least past 3 weeks
Recommendations
-No steroids
-Reasonable to reattempt lumbar puncture to help rule out infectious process and obtaining cytology would be useful in evaluation for malignancy although LP is generally low yield for this
-Continue aspirin for this morning, unless there are plans for essential further procedures recommend resuming Apixaban 6 hours after LP and stop aspirin at that point given recent minor stroke from atrial fibrillation
-Would pursue repeat brain MRI with and without contrast in 3-4 weeks to evaluate for any progression in lesions assessing if more consistent with stroke versus malignancy
-Continue malignancy workup
-NIH and neurologic checks
-Goal normotension
-Replace metoprolol with Propranolol 40 mg BID to help with headaches, recommended to patient she stop excedrin completely for 4 weeks
--For home PRN headache control, recommend 10 mg TID Compazine, 50 mg Sumatriptan PRN (Limit this to 2 days of pola week only)
-Will need neurology outpatient following
Original Note:
Documented by User: Agatha Ramires NP 04/25/24 12:30
Today's Communication / Plan
-
.
Neuro Assessment/Plan
Assessment
68-year-old woman with a PMH of obesity, hyperlipidemia, paroxysmal atrial fibrillation, CHF, diabetes mellitus, diabetic neuropathy presented to hospital due to sudden onset left leg weakness which lasted around 1 hour on 04/23/24. She was not a
candidate for TNK/IAT due to low NIHSS and no LVO. This seems to have completely resolved at this point. She denies any radiculopathy symptoms or significant change in chronic back pain she has had significant multiple spinal surgeries of the
lumbar spine.
Patient had been not taking her apixaban for about the past 3 weeks as she ran out.
Due to new onset daily headache starting 6 months ago and worsening in the past 2-3 months, patient had an outpatient brain MRI with and without contrast on 03/31/24 that was concerning for possibly brain metastasis to the right side of the brain.
Patient had not had any focal symptoms of left-sided face arm or leg paresthesia or weakness or speech difficulty or confusion but rather had had several months of daily unusual headache which prompted the brain scan.
She has no known history of malignancy has had an adrenal gland followed as well as multiple biopsies of a thyroid nodule.
-MRI brain 04/24/24: Focal area of abnormal restricted diffusion in the right posterior paramedian parietal lobe, cortical morphology, with no evidence for enhancement. This likely represents a focus of acute to subacute infarction. More subtle
region of increased diffusion-weighted signal and decreased ADC signal in the right paramedian frontal lobe and extending to the white matter of the right superior corpus callosum October. This is also suspicious for a focal area of acute to
subacute infarction. There are multiple regions of persistent enhancement in the right cerebral hemisphere as described, without significant interval change from MRI of the brain of March 31, 2024. Given the findings on today's examination, these are
felt to most likely be regions of subacute infarction with persistent enhancement. Neoplastic disease is not completely excluded and is considered within the differential. Continued MR imaging follow-up is advised. Patient is apparently scheduled
for metastatic workup, and would likely still be advised.
-CTA head/neck 04/24/24: No evidence of large vessel occlusion, or arterial dissection. Calcified plaque within each carotid bulb, associated with less than 50% stenosis on each side. Aneurysm of the ascending thoracic aorta, measuring 4.9 cm in
greatest imaged orthogonal dimension. Main pulmonary trunk is dilated, measuring 3.9 cm in diameter, suggestive of pulmonary arterial hypertension. 1.9 cm right thyroid nodule. This may be further evaluated with thyroid ultrasound.
I. Transient left lower extremity weakness can be attributed to new area of acute ischemic infarct in the right posterior paramedian parietal lobe.
II. Brain lesions on the repeated brain MRI today seem to be similar to the previous brain MRI approximately 3.5 weeks ago. Her clinical course leading up to the brain MRI at the end of March was characterized more by frequent diffuse unusual
headaches without any focal signs.
III. Patient does have diabetes but otherwise does not seem to be the type of patient who is so immune compromised that she would be at risk for toxoplasmosis or brain abscess, clinically she does not seem the picture of a brain abscess and
certainly not an encephalitis.
IV. New daily persistent headache possibly worsened by medication overuse with daily use of Excedrin.
. Poorly controlled diabetes, hbA1c is 11.3.
Plan
-Lumbar puncture pending, if unsuccessful today, okay to discontinue plan for LP.
-Patient will need repeat MRI brain w/ and w/o contrast in 3-4 weeks as an outpatient for further follow-up.
-Goal normotension.
-Initiate home Eliquis 5mg BID when recovered from LP today.
-Continue aspirin 81mg daily.
-Hold off on steroids.
-LDL goal <70. LDL is 93. Patient is statin intolerant. Continue home Zetia 10mg and can discuss PCSK9 inhibitor options with Cardiology as an outpatient.
-Goal normoglycemia, hbA1c is 11.3.
-Okay to continue home oxycodone but this is likely not helping her headache.
-Discontinue use of Excedrin.
-Initiate magnesium 400mg and riboflavin 400mg PO daily for headache prevention.
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
-Provide prochlorperazine 10mg PO q8hrs for headache relief.
-Okay to take Imitrex 50mg PO for migraine relief sparingly.
-DVT prophylaxis.
-NIHSS and neurological checks per unit guidelines.
-Provide patient with a stroke education packet.
-PT/OT/ST evaluations.
-Will follow.
Subjective/Objective
Subjective Data
Date of Service: April 25, 2024
No acute events overnight. Patient denies any further LLE weakness. LP was unsuccessful, patient tolerated this well and is willing to attempt again today. Her frontal headache today is a 2/10. She denies any dizziness, vision changes,
speech/swallowing difficulty, one-sided numbness, focal weakness, chest pain, palpitations, and shortness of breath.
Objective Data
Vital Signs
Temp Pulse Resp BP Pulse Ox
97.9 F 80 18 102/40 96
04/25/24 07:00 04/25/24 10:36 04/25/24 07:00 04/25/24 10:36 04/25/24 11:46
Lab Results
04/25/24 08:12
04/25/24 08:12
PT 13.1 Sec (11.4-14.6) 04/24/24 12:57
INR 0.99 04/24/24 12:57
Sodium 138 mmol/L (135-145) 04/25/24 08:12
Potassium 4.5 mmol/L (3.5-5.1) 04/25/24 08:12
BUN 23 mg/dl (7-17) H 04/25/24 08:12
Glucose 230 mg/dl (70-99) H 04/25/24 08:12
Calcium 9.9 mg/dl (8.4-10.2) 04/25/24 08:12
LDL Cholesterol, Calc 94 mg/dl 04/24/24 08:51
Patient Allergies
cephalexin [From Keflex] Allergy (Unknown, Verified 04/24/24 00:03)
Hives
Penicillins Allergy (Verified 04/24/24 00:03)
Hives
pioglitazone [From Actos] Allergy (Verified 04/24/24 00:10)
Swelling
Eyvwkdk-KAA-YyQ Reductase Inhibitor [Mwxttcd-Gno-Ovt Reductase Inhibitor] Allergy (Verified 04/24/24 00:03)
Unknown
sulfamethoxazole [From Bactrim] Allergy (Verified 04/24/24 00:03)
Anaphylaxis
trimethoprim [From Bactrim] Allergy (Verified 04/24/24 00:03)
Anaphylaxis
some cheeses Allergy (Uncoded 04/24/24 00:03)
Itching
LDL Level: >70, statin contraindicated
Review of Systems
-
History Source: Patient
EENT: Negative Blurry Vision, Decreased Vision or Swallowing Difficulty
Respiratory: Negative Cough or Trouble Breathing
Cardiac: Negative Chest Pain or Palpitations
Abdomen/GI: Negative Nausea
Neuro: Negative Dizzy, Headache, Weakness, Numbness, Ataxia, Tremors or Speech Problem
Physical Exam
-
General: No Apparent Distress
Eyes: No Ptosis and PERRLA
HEENT: Normocephalic and Atraumatic
Neck: Full Range of Motion
Respiratory: No Dyspnea
GI: Non-distended
Extremities: No Clubbing, No Cyanosis and No Edema
Psych: Unremarkable
Extended Neurological Exam
Mood & Affect: Mood Unremarkable and Affect Unremarkable
Attention Span & Concentration: Awake, Alert, Interactive and No Difficulty with 2 Step Request
Memory: Unremarkable (AAOx3) and Able to Recall
Tremor: Hand Tremor Absent and Head Tremor Absent
Involuntary Movement: None
Speech: Quality Unremarkable, Quantity Unremarkable and Rate of Production Unremarkable
Cranial Nerve II: Left Eye: Pupillary Reactivity Unremarkable, Pupillary Size Unremarkable and Visual Lion Intact
Cranial Nerve II: Right Eye: Pupillary Reactivity Unremarkable, Pupillary Size Unremarkable and Visual Lion Intact
Cranial Nerves III, IV, : Extraocular Movement: Extraocular Movement Full in all Directions
Cranial Nerve V: Facial Sensation: Intact to Light Touch
Cranial Nerve VII: Facial Symmetry: Normal Facial Symmetry
Cranial Nerve VIII: Hearing: Unremarkable Hearing to Normal Conversational Volume
Cranial Nerves IX, X: Palate Movement: Palate Elevation Symmetric
Cranial Nerve XI: Shoulder Shrug: Unremarkable
Cranial Nerve XII: Tongue Protusion: Midline
Muscle Strength, Overall: Full Throughout
Muscle Bulk & Tone: Bulk Unremarkable and Tone Unremarkable
Pronator Drift: No Drift in Upper Extremities and No Drift in Lower Extremities
Touch Sensation: Double Simultaneous Stimulation Unremarkable
Coordination: Svhgix-ersc-gdcaoa Testing Unremarkable
Modified [place] Score (MRS)
-
Modified [place] Scale (mRS): No symptoms
Score: 0
Data Reviewed
-
CT-A: Report Reviewed and Image Reviewed
CT Head: Report Reviewed and Image Reviewed
MRI Head: Report Reviewed and Image Reviewed
Labs: Report Reviewed
Lipid Profile: Report Reviewed
HgbA1C: Report Reviewed
Reviewed with: Physician and Patient
Medications
-
Active Medications
Generic Name Dose Route Start Last Admin
Trade Name Freq PRN Reason Stop Dose Admin
Acetaminophen 650 mg 04/24/24 02:39
Acetaminophen 650 Mg Rectal Suppository RECTAL 05/22/24 02:38
Q4HPRN PRN
GUY, mild pain, or temp >100.4F
Acetaminophen 650 mg 04/24/24 02:39
Acetaminophen 325 Mg Tablet PO 05/22/24 02:38
Q4HPRN PRN
GUY, mild pain, or temp >100.4F
Aspirin 81 mg 04/24/24 08:00 04/25/24 08:36
Aspirin 81 Mg Chewable Tablet PO 05/22/24 07:59 81 mg
DAILY ADELIA Administration
Dapagliflozin 5 mg 04/24/24 08:00 04/24/24 09:09
Dapagliflozin (Farxiga) 5 Mg Tablet PO 05/22/24 07:59 Not Given
DAILY ADELIA
Dextrose 12.5 grams 04/24/24 02:39
Dextrose 50% (0.5 Grams/Ml) 50 Ml Syringe IV 05/22/24 02:38
[id number] PRN
hypoglycemia
Protocol
Duloxetine HCl 60 mg 04/24/24 08:00 04/25/24 08:36
Duloxetine Delayed Release 60 Mg Capsule PO 05/22/24 07:59 60 mg
DAILY ADELIA Administration
Ezetimibe 10 mg 04/24/24 08:00 04/25/24 08:36
Ezetimibe (Zetia) 10 Mg Tablet PO 05/22/24 07:59 10 mg
DAILY ADELIA Administration
Gabapentin 300 mg 04/24/24 08:00 04/25/24 08:36
Gabapentin 300 Mg Capsule PO 05/22/24 07:59 300 mg
BID ADELIA Administration
Glucagon 1 mg 04/24/24 02:39
Glucagon 1 Mg Vial IM 05/22/24 02:38
PRN PRN
hypoglycemia
Protocol
Sodium Chloride 1,000 mls @ 75 mls/hr 04/24/24 08:15 04/25/24 07:24
Nss IV 1,000 mls
.[id number] ADELIA Administration
Insulin Glargine 12 units/ 0.12 mls @ 0 mls/hr 04/24/24 22:00 04/24/24 21:16
Device SC 05/22/24 21:59 0.12 mls
HS ADELIA Administration
As Directed
Insulin Aspart 0 units 04/24/24 07:30 04/25/24 08:46
Insulin Aspart Moderate Resistance 300 Units/3 Ml Pen.Injctr SC 05/22/24 07:29 5 units
AC ADELIA Administration
Protocol
Insulin Aspart 5 units 04/24/24 16:30 04/25/24 08:47
Insulin Aspart (100 Units/Ml) 3 Ml Flexpen SC 05/22/24 16:29 5 units
AC ADELIA Administration
Magnesium 84 mg 04/24/24 08:00 04/25/24 08:36
Magnesium Lactate 84 Mg Tablet PO 05/22/24 07:59 84 mg
DAILY ADELIA Administration
Metformin HCl 1,000 mg 04/24/24 17:00 04/25/24 08:36
Metformin 1000 Mg Regular Release Tablet PO 05/22/24 16:59 1,000 mg
BID@0800,1700 ADELIA Administration
Oxycodone HCl 20 mg 04/24/24 08:00 04/25/24 08:36
Oxycontin 10 Mg Controlled Release Tablet PO 05/08/24 07:59 20 mg
Q12 ADELIA Administration
Oxycodone HCl 10 mg 04/24/24 02:39
Oxycodone 10 Mg Regular Release Tablet PO 05/08/24 02:38
Q8HPRN PRN
pain
Polyethylene Glycol 17 grams 04/24/24 02:39
Polyethylene Glycol Powder 17 Grams Packet PO 05/22/24 02:38
DAILY PRN
constipation
Prochlorperazine Maleate 10 mg 04/24/24 15:09
Prochlorperazine 10 Mg Tablet PO 05/22/24 15:08
Q8HPRN PRN
headache
Propranolol HCl 40 mg 04/25/24 09:00 04/25/24 10:36
Propranolol 40 Mg Regular Release Tablet PO 05/23/24 08:59 40 mg
BID ADELIA Administration
Sodium Chloride 0 flush 04/24/24 02:00
Sodium Chloride 0.9% (Flush) Syringe IV 05/22/24 01:59
PER PROTOCOL ADELIA
Home Medications
�Medication �Instructions �Recorded
gabapentin 300 mg capsule 300 mg PO BID Neurological 09/20/16
Condition
ezetimibe 10 mg tablet 10 mg PO DAILY High Cholesterol 06/11/18
insulin aspart U-100 100 unit/mL 20 units SC .FOR BS>300 PRN BS>300 06/11/18
subcutaneous solution (Novolog
U-100 Insulin aspart)
oxycodone 20 mg tablet,crush 20 mg PO Q12 Pain 06/11/18
resistant,extended release 12 hr
(OxyContin)
apixaban 5 mg tablet (Eliquis) 5 mg PO BID Blood Clot 02/16/22
Prevention/Tx
ascorbic acid (vitamin C) 500 mg 500 mg PO DAILY Supplement 02/16/22
tablet (Vitamin C With Amberly Hips)
ascorbic acid (vitamin C) 500 mg 500 mg PO DAILY Supplement 02/16/22
tablet (Vitamin C)
cholecalciferol (vitamin D3) 125 2,500 unit PO HS Supplement 02/16/22
mcg (5,000 unit) disintegrating
tablet
dapagliflozin propanediol 5 mg 5 mg PO DAILY Diabetes 02/16/22
tablet (Farxiga)
diphenhydramine HCl 25 mg capsule 25 mg PO Q4HPRN PRN itching 02/16/22
(Banophen)
duloxetine 60 mg capsule,delayed 60 mg PO DAILY Neurological 02/16/22
release Condition
epinephrine 0.3 mg/0.3 mL 0.3 mg IJ PRN PRN anaphylaxis 02/16/22
injection, auto-injector (EpiPen
2-Cezar)
ethacrynic acid 25 mg tablet 25 mg PO PRN PRN swelling 02/16/22
evolocumab 140 mg/mL subcutaneous 140 mg SQ Q2W High Cholesterol 02/16/22
syringe (Repatha Syringe)
losartan 100 mg tablet (Cozaar) 100 mg PO DAILY Blood Pressure 02/16/22
magnesium 100 mg capsule 100 mg PO DAILY Supplement 02/16/22
(Magnacaps)
metformin 1,000 mg tablet 1,000 mg PO BID ##0 02/16/22
metoprolol tartrate 50 mg tablet 75 mg PO DAILY Blood Pressure 02/16/22
(Lopressor)
naloxone 4 mg/actuation nasal 4 mg intranasal DIRECTED PRN 02/16/22
spray (Narcan) overdose of oxycodone
oxycodone 10 mg tablet 10 mg PO Q8HPRN PRN pain 02/16/22
polyethylene glycol 3350 17 gram 17 grams PO DAILY PRN constipation 02/16/22
oral powder packet
vitamin B complex 1 tab PO DAILY Supplement 02/16/22
zinc 10 mg tablet 23 mg PO BID Supplement 02/16/22
aspirin 81 mg tablet,delayed 81 mg PO DAILY Blood Clot 04/24/24
release Prevention/Tx
cxfrnyw-wrrsefflgsrub-uvyrybrh 250 1 tab PO Q6H PRN pain 04/24/24
mg-250 mg-65 mg tablet (Excedrin
Extra Strength)
metoprolol tartrate 50 mg tablet 50 mg PO HS Blood Pressure 04/24/24
NIH Stroke Score
Subsequent NIH Scale
Date of Subsequent NIH Scale: 04/25/24
Time of Subsequent NIH Scale: 09:00
NIH Stroke Score
Level of Consciousness: 0 - Alert
LOC Questions: 0-Answers both correctly
LOC Commands: 0-Performs both correctly
Best Horizontal Gaze: 0-Normal
Visual Lion: 0=Normal, no visual loss
Facial Palsy: 0=Normal, symmetrical
Motor - Right Arm: 0=No drift 10 seconds
Motor - Left Arm: 0=No drift 10 seconds
Motor - Right Le-No drift 5 seconds
Motor - Left Le-No drift 5 seconds
Limb Ataxia: 0-Absent
Sensation: 0-Normal
Best Language: 0-No aphasia
Dysarthria: 0-Normal
Extinction and Inattention: 0-No abnormality
Total Score:: 0
Modified [place] (mRS) Score
Modified [place] Scale (mRS): No symptoms
Score: 0

Documented by User: Gerber Smith MD 04/25/24 12:48
Modified [place] Score (MRS)
-
Score: 0
NIH Stroke Score
NIH Stroke Score
Total Score:: 0
Modified [place] (mRS) Score
Score: 0
--- NOTE | 2024-04-25 12:02 | PN.CDI ---
CDI
- -
CDI:
Physician Documentation Request
Admit Date: 04/24/24 02:22
Dear Doctor Guido,
Please review the following and provide your response in the progress notes.
Clinical Indicators:
The diagnosis of ROMULO was documented on 04/24 PN
- 04/24 PN 'Acute kidney injury' without noted baseline
Laboratory Tests
04/24/24 04/25/24
00:30 08:12
Creatinine 1.1 H 1.0
eGFR 54.39 > 60.00
Please clarify the following:
____ - ROMULO was present on admission and is now resolved
____ - ROMULO was ruled out
____ - Other
Criteria for ROMULO*
1 Increase in serum creatinine by > or = to 0.3 mg/dL (> or = to 26.5 micromol/L) within 48 hours, OR
2 Increase in serum creatinine to > or = to 1.5 times baseline, which is known or presumed to have occurred within 7 days, OR
3 Urine volume < 0.5 nL/kg/hour for six hours
Stages of Chronic Kidney Disease*
Level Description GFR
G1 Normal or High >90
G2 Mildly decreased 60-89
G3a Mildly to moderately decreased 45-59
G3b Moderately to severely decreased 30-44
G4 Severely decreased 15-29
G5 Kidney failure <15
Use of terms such as suspected, likely, concern for, or probable (associated with a specific diagnosis that is being evaluated, monitored, or treated as if it exists) are acceptable and can be coded in the inpatient setting, when documented at the
time of discharge.
Thank you,
Kathie Downs RN
CDI Specialist
Please use your independent medical judgment in providing your response.
*Source: Kidney Disease: Improving Global Outcomes (KDIGO) 2012
--- NOTE | 2024-04-25 12:07 | CON.ID ---
Addendum entered and electronically signed by Jorge Kulkarni, 04/25/24 15:52:
I personally performed a history and physical exam of the patient and discussed management with the resident. I reviewed the resident's note and agree with the documented findings and plan of care HPI/CC.
Case discussed with Neurology. Findings on imaging most consistent with vascular event, although infection a possibility
S/P LP; will await results.
Check toxo serology.
No need for abx at present.
Will continue to follow along with you.
Original Note:
Consultation
-
Date/Time Consultation Requested: 04/25/2024, 10:04
Date/Time Consultation Performed: 04/25/2024, 12:15
Requesting Provider: Dr. Susan Clancy.
Performing Provider: Dr. Jorge Kulkarni.
Chief Complaint / Past History
Chief Complaint
left leg weakness
History of Present Illness
68 yr old female, Ms. Spencer with past medical history significant for Diabetes, A-fib on Eliquis (ran out of the Eliquis for 2-week) was being evaluated at the request of Dr. Clancy. History is obtained from chart review, along with patient
interview.
Ms. Spencer presented to the hospital on 04/24/2024 for being evaluated for acute onset of left leg weakness. Patient has been having chronic headaches, worsened over the past 6 months, and as part of outpatient workup, patient had an MRI brain on
03/31/24 which showed right sided parenchymal lesions, some of which are 'ring-enhancing'. Infectious disease was consulted for further evaluation, for the possibility of the lesions being of infectious etiology.
Patient reports she had left leg weakness on 04/23/2024 and was sudden in onset, lasted for approximately an hour, accompanied by dizziness, no speech abnormality/ transient loss of vision. No h/o nausea/ vomiting / diarrhea, recent weight loss,
cough, fevers/ chills, joint pains, rashes. No h/o recent travel, exposure to sick contacts, cave exploration. Patient is not on any chronic immunosuppressive medications. Patient mentioned about her cat having cheek abscess 1 and 1/2 months ago (
was on antibiotics), patient does not have any other pets ( birds ). Patient had PPD done 2 years ago, and it was negative.
She was scheduled for a PET scan on 05/01/24 as outpatient.
Past History
Past Medical History: Arrhythmias, CAD, CHF, HTN, Hypercholesterolemia and IDDM
Additional Past Medical History:
left adrenal adenoma, thyroid nodule, glaucoma, lumbar ddd, LAVONNE, Thoracic aortic aneurysm.
Past Surgical History: Cholecystectomy
Additional Past Surgical History:
laparoscopic lumbar laminectomy, b/l cataract, left eye vitrectomy, pvi ablation
Allergy History:
cephalexin [From Keflex] Allergy (Unknown, Verified 04/24/24 00:03)
Hives
Penicillins Allergy (Verified 04/24/24 00:03)
Hives
pioglitazone [From Actos] Allergy (Verified 04/24/24 00:10)
Swelling
Uzivlth-EOW-XfC Reductase Inhibitor [Pqwohkn-Udt-Uuf Reductase Inhibitor] Allergy (Verified 04/24/24 00:03)
Unknown
sulfamethoxazole [From Bactrim] Allergy (Verified 04/24/24 00:03)
Anaphylaxis
trimethoprim [From Bactrim] Allergy (Verified 04/24/24 00:03)
Anaphylaxis
some cheeses Allergy (Uncoded 04/24/24 00:03)
Itching
Medications Reviewed: Yes
Social History
Tobacco: Non-Smoker
Alcohol: Occasional
Drug: None
Personal:
Living: With Family
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
Family History
Family History: Not Pertinent
Review of Systems
Review of Systems
as per hpi
Vital Signs
Temp Pulse Resp BP Pulse Ox
97.9 F 80 18 102/40 96
04/25/24 07:00 04/25/24 10:36 04/25/24 07:00 04/25/24 10:36 04/25/24 11:46
Physical Exam
Physical Exam
Constitutional: No Acute Distress, Well Developed and Comfortable
Head: Normocephalic
Eyes: Pupils Equal and Pupils Round
Lymph Nodes: Negative Lymphadenopathy
Cardiovascular: Regular Rate and S1/S2
Pulmonary: Clear
Gastrointestinal: Soft, Non Tender, Non Distended and Normal Bowel Sounds
Skin: Warm and Dry
Neurological: Awake, Oriented, AO x 3, Normal Muscle Strength and Other (sensory exam, normal. no FND. cranial nerves grossly intact.)
Psychological: Calm
Lab / Diagnostic Study Results
04/25/24 08:12
04/25/24 08:12
Abs Immat Gran (auto) 0.1 10^3/uL (0-0.05) H 04/25/24 08:12
Absolute Neuts (auto) 5.5 10^3/uL (1.4-6.5) 04/25/24 08:12
Absolute Lymphs (auto) 3.2 10^3/uL (1.2-3.4) 04/25/24 08:12
Absolute Monos (auto) 0.7 10^3/uL (0.1-0.6) H 04/25/24 08:12
Absolute Basos (auto) 0.1 10^3/uL (0-0.2) 04/25/24 08:12
Immature Gran % 0.8 % (0-0.5) H 04/25/24 08:12
Neutrophils % 52.8 % (42.2-75.2) 04/25/24 08:12
Lymphocytes % 30.6 % (20.5-51.1) 04/25/24 08:12
Monocytes % 7.2 % (1.7-9.3) 04/25/24 08:12
Eosinophils % 7.3 % (0-6) H 04/25/24 08:12
Basophils % 1.3 % (0-2) 04/25/24 08:12
PT 13.1 Sec (11.4-14.6) 04/24/24 12:57
INR 0.99 04/24/24 12:57
Microbiology Results
Micro:
none
Imaging
MRI brain 03/31/24: Four enhancing intraparenchymal lesions in the right cerebral hemisphere, the two larger of which show ring enhancement. The primary concern would be intraparenchymal brain metastases. Other differential considerations including
signal changes and enhancement secondary to infection or ischemia would be considered less likely based on their imaging appearance.
Abdomen/ Pelvis CT 04/04/24: No acute inflammatory process within the abdomen or pelvis.
Hepatic steatosis. 2.2 cm region of subtle increased attenuation at the inferior-lateral margin of the right lobe, which likely represents focal fatty sparing. Further evaluation with MRI may be considered for additional characterization and to
exclude a subtle mass if there are no contraindications.
Small stable left adrenal nodule consistent with a benign etiology.
No obstructive uropathy or suspicious renal mass.
Minor diverticulosis. No acute diverticulitis. Constipation; Moderate fecal burden.
Stable small retroperitoneal lymph nodes without enlarged adenopathy.
Fat-containing umbilical hernia measuring 7 cm transverse. Edema within the subcutaneous fat of the inferior abdominal wall panniculus.
No pelvic mass or adenopathy. The uterus and adnexal regions are unremarkable. The ovaries are normal in size and symmetric.
MRI brain 04/24/24: Focal area of abnormal restricted diffusion in the right posterior paramedian parietal lobe, cortical morphology, with no evidence for enhancement. This likely represents a focus of acute to subacute infarction. More subtle region
of increased diffusion-weighted signal and decreased ADC signal in the right paramedian frontal lobe and extending to the white matter of the right superior corpus callosum October. This is also suspicious for a focal area of acute to subacute
infarction. There are multiple regions of persistent enhancement in the right cerebral hemisphere as described, without significant interval change from MRI of the brain of March 31, 2024.
-CTA head/neck 04/24/24: No evidence of large vessel occlusion, or arterial dissection. Calcified plaque within each carotid bulb, associated with less than 50% stenosis on each side. Aneurysm of the ascending thoracic aorta, measuring 4.9 cm in
greatest imaged orthogonal dimension. Main pulmonary trunk is dilated, measuring 3.9 cm in diameter, suggestive of pulmonary arterial hypertension. 1.9 cm right thyroid nodule. This may be further evaluated with thyroid ultrasound.
Assessment / Plan
Impression :
Left lower extremity weakness
Chronic headaches
ROMULO- resolving
Paroxysmal A-fib
Other conditions
Hypertension
Diabetes
LAVONNE on CPAP
Hyperlipidemia
History of DRESS with Bactrim
Ascending aortic aneurysm
Hepatic steatosis
Diverticulosis
Recommendations
Patient is asymptomatic currently, afebrile, no leukocytosis.
As per neurology-her transient left leg weakness is likely due to acute stroke of the right frontal lobe, due to atrial fibrillation as patient not on Eliquis for the past 3 weeks.
MRI also showed evidence of multiple ring-enhancing lesions.
Plan for lumbar puncture, to rule out infectious etiology.
--- NOTE | 2024-04-25 12:16 | W.PN.ONC2 ---
Today's Communication / Plan
-
continue to collaborate with neurosurgery
will stand by and see pt PRN -please reach out with any questions or concerns
Impression
Impression
Multiple ring-enhancing lesions right posterior brain largest measuring 1.5 cm on MRI that may reflect sequela of CVA/TIA versus brain lesion/neoplasm
Transient weakness
No obvious abnormality on CT or mammogram to suggest primary
AF, recent non-compliance with DOAC
Plan
Plan
Outpatient PET CT scan is unlikely to provide additional insight as CT is essentially unremarkable with the exception of of 2.5 cm mediastinal lymph node
Follow up imaging as recommended by neurosurgery, no surgical interventions planned at this point
Subjective/Objective
Chief Complaint
presenting symptoms resolved
Subjective
no new complaints
Vital Signs:
Vital Signs
Temp Pulse Resp BP Pulse Ox
97.9 F 80 18 102/40 96
04/25/24 07:00 04/25/24 10:36 04/25/24 07:00 04/25/24 10:36 04/25/24 11:46
Lab Results:
Laboratory Data
WBC 10.3 10^3/uL (4.8-10.8) 04/25/24 08:12
Hgb 14.8 g/dL (12.0-16.0) 04/25/24 08:12
Plt Count 329 10^3/uL (130-400) 04/25/24 08:12
PT 13.1 Sec (11.4-14.6) 04/24/24 12:57
INR 0.99 04/24/24 12:57
eGFR > 60.00 04/25/24 08:12
Physical Exam
General: Awake, alert and oriented x3, not in distress.
HEENT: No active discharge, ecchymosis or bruising, moist lips, tongue and mucous membrane.
Eyes: No discharge or red conjunctiva
Neck:Supple
Lungs: Good air entry bilaterally, no wheezing or rhonchi, no rales or crackles
Heart: regular, normal rate no murmur appreciated
Gastrointestinal: soft, nontender,
Extremities: No pitting edema
Skin: Warm and dry,
Neurological: Awake, alert and oriented x3, intact speech clear and comprehensive,
Psychiatric: Normal mood
Review of Systems
Review of Systems
review of systems notable for subjective otherwise negative
[2024-04-25 12:27] LABS: Glucose - Point of Care 235 mg/dl (70-99)
--- NOTE | 2024-04-25 14:18 | PTOTSP ---
Video Swallow Study
Summary: Oral and pharyngeal stages of swallowing within functional limits during video swallow study with no aspiration.
Esophageal stage concerning for possible esophageal dysphagia. Patient reported a history of reflux with prior upper GI study and plan for manometry (which was cancelled due to COVID pandemic). Consider outpatient GI consult.
Patient reported occasional coughing with juicy fruits/mixed consistencies. Consider compensations below.
Recommend:
1. Regular, Thin Liquids
2. Aspiration precautions: sit upright, slow rate, chin down with juicy/mixed consistencies (to contain bolus to anterior oral cavity), alternate sips/bites (to help clear esophagus), reflux precautions
3. Medications as best tolerated
4. Will follow up briefly for instruction in compensations.
[2024-04-25] MEDS: NOVOLOG FLEXPEN-MODERATE RESISTANCE 3 UNITS SC ×2 (14:38→16:17)
[2024-04-25 16:06] LABS: Glucose - Point of Care 206 mg/dl (70-99)
[2024-04-25 16:16] LABS: Spinal Fluid Glucose 152 mg/dl (40-70); Spinal Fluid Protein 254 mg/dl (12-60)
[2024-04-25 16:50] LABS: CSF Tube # 4
[2024-04-25 16:51] LABS: CSF Clarity Clear; CSF Color Colorless; Red Cell Count/CSF 36 mm^3; White Cell Count/CSF 2 mm^3 (0-5)
[2024-04-25] MEDS: NOVOLOG FLEXPEN 2 UNITS SC (17:07)
[2024-04-25 19:13] LABS: Urine Albumin 1+ (Neg - Trace); Urine Bilirubin Negative (Negative); Urine Character Very Cloudy (Clear); Urine Color Yellow; Urine Glucose 3+ (Negative); Urine Ketone Trace (Negative); Urine Leukocyte 1+ (Negative); Urine Nitrite Negative (Negative); Urine Occult Blood Negative (Negative); Urine Urobilinogen Negative (Neg - 1+)
[2024-04-25 19:30] LABS: Urine Red Blood Cell 0-2 /HPF (0-2); Urine Yeast Few (Negative)
[2024-04-25] MEDS: PROTONIX 40 MG PO (19:53)
[2024-04-25] MEDS: SENOKOT PO (19:54)
[2024-04-25 21:44] LABS: Glucose - Point of Care 253 mg/dl (70-99)
[2024-04-25] MEDS: LANTUS 0.18 UNITS SC (21:59)
[2024-04-26 03:42] VITALS: BP 162/89
[2024-04-26 07:12] VITALS: BP 105/74
--- NOTE | 2024-04-26 07:12 | W.PN.HOSP.TC ---
Addendum entered and electronically signed by Susan Clancy MD 04/26/24 14:16:
I personally performed a history and physical exam of the patient and discussed management with the resident. I reviewed the resident's note and agree with the documented findings and plan of care HPI/CC.
Ashlyn is feeling slightly better today. No leg weakness
She still has some stress incontinence.
Spinal fluid noted not indicated of bacterial infection. Toxoplasma and other fluid studies pending
Infectious disease added Macrobid
She was made aware about insulin, adjust insulin
We restarted her SGLT2 inhibitors continue metformin
Spoke to sister, who felt that she has not been compliant with meds or diet.
She feels she may be depressed.
Time spent over 50 min
Original Note:
Today's Communication/Plan
-
macrobid for suspected UTI
pending Toxo results adn CSf cytology
Assessment / Plan
Assessment / Plan
68-year-old female with history of coronary disease, diabetes, hyperlipidemia, A-fib and ran out of the [employer] for 2-week and not taking it, presents with a sudden weakness of the left leg which resolved in the ER during exam and laying down, also
she has a chronic headache while the MRI on March 31 showed multiple ring-enhancing lesion on the right cerebral hemisphere.
#Left leg weakness,
PVD vs stroke versus related to the ring-enhancing lesion in the right cerebral hemisphere, vs metastatic disease.
- CT and CTA do not show any evidence of an acute infarct or large vessel occlusion
- possibility of subacute infarction
- successful reattempt LP on 04/25
- repeat Brain MRI with and w/o contrast: Focal area of abnormal restricted diffusion in the right posterior paramedian parietal lobe, cortical morphology, with no evidence for enhancement. This likely represents a focus of acute to subacute
infarction
- t/c PET scan
- repeat MRI in 3-4 weeks in OP
- Oncology on board
- Neuro: For home PRN headache control, recommend 10 mg TID Compazine, 50 mg Sumatriptan PRN (Limit this to 2 days of the week only)
- Will need neurology outpatient following
#Acute kidney injury,
- present on admission- now resolved
# Urinary incontinence- likely stress incont.
- UA and culture pending
- ID started macrobid
#Diabetes mellitus
- Continue insulin and monitor blood sugar.
- HbA1C 11.3
- resume farxiga
- continue metformin
- consideration for usp insulin due to poor BG control
- aspart 10 units before meals and glargine 18 units at bedtime
#Chronic elevated liver enzymes likely secondary to fatty liver vs mets or Liver lesion
- check CT w contrast abd/pelvis
- viral hep panel pending
# Paroxysmal A-fib
- ran out of eliquis 2 weeks ago before admission
- EKG : ATRIAL FLUTTER WITH VARIABLE A-V BLOCK
- restart Eliquis today
# Constipation
- bowel regimen
#Hypertension- on lasartan
#Coronary artery disease- switched metoprolol to propranolol given hx of headaches
#Chronic pain syndrome on narcotic.- continue oxycontin
#Peripheral neuropathy- continue gabapentin and duloxetine
# Sleep apnea on CPAP
# Chronic heart failure with preserved ejection fraction. Restart ethacrynic acid
# Hyperlipidemia-continue Zetia, Repatha
# History of herniated disks and degenerative joint disease-with microdiscectomy
# History of DRESS Syndrome from Bactrim
# Ascending aortic aneurysm 4.9 cm
# Hepatic steatosis
# 2.2 cm region of subtle increased attenuation in the inferior lateral margin of the right lobe-needs MRI
# Diverticulosis
# 1.9 cm right thyroid nodule. Recommended OP workup.
CODE STATUS: full code
DVT prophylaxis: Will SCD for now in case Of any intervention otherwise if no intervention planned can be started on pharmacologic prophylaxis.
Anticipated Discharge: Within 24 hours
Subjective/Interval History
-
Date of Service: April 26, 2024
Objective Data
-
Labs:
Laboratory Results
04/26/24
06:00
WBC Pending
Hgb Pending
Hct Pending
Plt Count Pending
Sodium Pending
Potassium Pending
Chloride Pending
Carbon Dioxide Pending
BUN Pending
Creatinine Pending
Glucose Pending
Calcium Pending
Total Bilirubin Pending
AST Pending
ALT Pending
Alkaline Phosphatase Pending
Vital Signs:
Vital Signs
Temp Pulse Resp BP Pulse Ox
99.0 F 71 20 162/89 93
04/26/24 03:42 04/26/24 03:42 04/26/24 03:42 04/26/24 03:42 04/26/24 03:42
I&O
04/25/24 04/26/24 04/27/24
06:59 06:59 06:59
Intake Total 1879 480 / 480
Output Total 1050 / 1050
Balance 1879 -570 / -570
Review of Systems
-
History Source: Patient
Constitutional: Denies Fever
Respiratory: Denies Cough
Cardiac: Denies Chest Pain
Abdomen/GI: Denies Abdominal Pain
Genitourinary: Reports Frequency
Neuro: Denies Headache
Physical Exam
-
General: Well Developed, Well Nourished and No Apparent Distress
HEENT: Normocephalic and Atraumatic
Respiratory: Clear to Auscultation
Cardiac: Regular Rhythm
GI: Soft and Nontender
Skin: Warm and Dry
Neuro: Awake, Alert and Oriented
Psych: Calm
Data Reviewed
-
Labs: Labs Reviewed by me, Discussed with Physician and Discussed with Patient
[2024-04-26 08:43] LABS: Glucose - Point of Care 264 mg/dl (70-99)
[2024-04-26] MEDS: CYMBALTA DELAYED RELEASE 60 MG PO (08:44)
[2024-04-26] MEDS: SENOKOT PO (08:44)
[2024-04-26] MEDS: NEURONTIN 300 MG PO ×2 (08:44→20:27)
[2024-04-26] MEDS: ZETIA 10 MG PO (08:44)
[2024-04-26] MEDS: ELIQUIS 5 MG PO ×2 (08:44→20:26)
[2024-04-26] MEDS: MAG-TAB SR 84 MG PO (08:44)
[2024-04-26] MEDS: LOW STRENGTH ASPIRIN 81 MG PO (08:44)
[2024-04-26] MEDS: PROTONIX 40 MG PO ×2 (08:44→20:27)
[2024-04-26] MEDS: INDERAL 40 MG PO ×2 (08:45→20:27)
[2024-04-26] MEDS: MIRALAX PO (08:45)
[2024-04-26] MEDS: GLUCOPHAGE 1000 MG PO ×2 (08:45→17:28)
[2024-04-26] MEDS: OXYCONTIN (CONTROLLED RELEASE) 20 MG PO ×2 (08:51→20:27)
[2024-04-26] MEDS: BENADRYL 25 MG PO ×2 (08:51→16:25)
[2024-04-26 08:58] LABS: Hematocrit 43.1 % (37.0-47.0); Hemoglobin 14.2 g/dL (12.0-16.0); Mean Corp Hgb Conc. 32.9 g/dL (33.0-37.0); Mean Corpuscular Hgb 31.3 pg (27.0-31.0); Mean Corpuscular Volume 94.9 fL (81.0-99.0); Mean Platelet Volume 10.7 fL (7.4-10.4); Platelet Count 276 10^3/uL (130-400); Red Blood Cell Count 4.54 10^6/uL (4.20-5.40); Red Cell Dist. Width 14.5 % (11.5-14.5)
[2024-04-26] MEDS: NOVOLIN N vial 0.12 UNITS SC (09:14)
[2024-04-26] MEDS: NOVOLOG FLEXPEN 3 UNITS SC (09:20)
[2024-04-26] MEDS: NOVOLOG FLEXPEN 7 UNITS SC (09:20)
[2024-04-26] MEDS: NOVOLOG FLEXPEN-MODERATE RESISTANCE 5 UNITS SC (09:21)
[2024-04-26 09:37] LABS: ALT (SGPT) 34 U/L (0-35); AST (SGOT) 97 U/L (14-36); Albumin 3.8 g/dl (3.5-5.0); Alkaline Phosphatase 72 U/L (38-126); Blood Urea Nitrogen 21 mg/dl (7-17); Calcium 9.6 mg/dl (8.4-10.2); Carbon Dioxide 27 mmol/L (22-30); Chloride 99 mmol/L (98-107); Estimated Creatinine Clearance 74 ml/min; Glucose 242 mg/dl (70-99); Potassium 4.1 mmol/L (3.5-5.1); Sodium 135 mmol/L (135-145); Total Bilirubin 0.4 mg/dl (0.2-1.3); Total Protein 6.2 g/dl (6.3-8.2); eGFR > 60.00
--- NOTE | 2024-04-26 11:19 | W.PN.ID1 ---
Date of Service
Date of Service: April 26, 2024
Today's Communication
Begin macrobid
Assessment / Plan
Impression :
Left lower extremity weakness
Chronic headaches
ROMULO- resolving
Paroxysmal A-fib
Urinary urgency
Multiple abx allergies (PCN - hives; keflex - hives; Bactrim - anaphylaxis/DRESS)
Other conditions
Hypertension
Diabetes
LAVONNE on CPAP
Hyperlipidemia
Ascending aortic aneurysm
Hepatic steatosis
Diverticulosis
Recommendations
Patient is asymptomatic currently, afebrile, no leukocytosis although reporting urinary urgency.
As per neurology-her transient left leg weakness is likely due to acute stroke of the right frontal lobe, due to atrial fibrillation as patient not on Eliquis for the past 3 weeks.
MRI also showed evidence of multiple ring-enhancing lesions.
LP without pleocytosis. Toxoplasma serology pending.
Urine culture pending. Will begin empiric macrobid.
Patient counseled to follow-up with Allergy/Immunology following discharge for antibiotic allergy testing.
����������������������������������������������������������
Chief Complaint
-: UTI
Subjective / Review of Systems
Review of Systems: No Fever, No Chills and No Dysuria (reports urgency)
Vital Signs / Physical Exam
Vital Signs
Vital Signs
Temp Pulse Resp BP Pulse Ox
99.4 F 66 18 105/74 94
04/26/24 07:12 04/26/24 07:12 04/26/24 07:12 04/26/24 07:12 04/26/24 07:12
Physical Exam
Constitutional: No Acute Distress, Comfortable and Non-toxic
Eyes: Sclera Anicteric
Cardiovascular: S1/S2; Negative S3/S4
Pulmonary: Non Labored
Neurological: Awake and Alert
Psychological: Calm
Objective Data
Lab Data
Lab Results
04/26/24 07:44
04/26/24 07:44
PT 13.1 Sec (11.4-14.6) 04/24/24 12:57
INR 0.99 04/24/24 12:57
Estimated Creat Clear 74 ml/min 04/26/24 07:44
Total Bilirubin 0.4 mg/dl (0.2-1.3) 04/26/24 07:44
AST 97 U/L (14-36) H 04/26/24 07:44
ALT 34 U/L (0-35) 04/26/24 07:44
Alkaline Phosphatase 72 U/L (38-126) 04/26/24 07:44
Most recent labs reviewed.
Micro Results:
04/24/24 14:35 CSF Culture - Preliminary
Csf No Growth After 18-24 Hours
Gram Stain - Preliminary
04/25/24 19:02 Urine Culture - Pending
Urine
04/24/24 14:35 Meningitis/Encephalitis Panel (PCR) - Final
Csf
Imaging
MRI brain 03/31/24: Four enhancing intraparenchymal lesions in the right cerebral hemisphere, the two larger of which show ring enhancement. The primary concern would be intraparenchymal brain metastases. Other differential considerations including
signal changes and enhancement secondary to infection or ischemia would be considered less likely based on their imaging appearance.
Abdomen/ Pelvis CT 04/04/24: No acute inflammatory process within the abdomen or pelvis.
Hepatic steatosis. 2.2 cm region of subtle increased attenuation at the inferior-lateral margin of the right lobe, which likely represents focal fatty sparing. Further evaluation with MRI may be considered for additional characterization and to
exclude a subtle mass if there are no contraindications.
Small stable left adrenal nodule consistent with a benign etiology.
No obstructive uropathy or suspicious renal mass.
Minor diverticulosis. No acute diverticulitis. Constipation; Moderate fecal burden.
Stable small retroperitoneal lymph nodes without enlarged adenopathy.
Fat-containing umbilical hernia measuring 7 cm transverse. Edema within the subcutaneous fat of the inferior abdominal wall panniculus.
No pelvic mass or adenopathy. The uterus and adnexal regions are unremarkable. The ovaries are normal in size and symmetric.
MRI brain 04/24/24: Focal area of abnormal restricted diffusion in the right posterior paramedian parietal lobe, cortical morphology, with no evidence for enhancement. This likely represents a focus of acute to subacute infarction. More subtle region
of increased diffusion-weighted signal and decreased ADC signal in the right paramedian frontal lobe and extending to the white matter of the right superior corpus callosum October. This is also suspicious for a focal area of acute to subacute
infarction. There are multiple regions of persistent enhancement in the right cerebral hemisphere as described, without significant interval change from MRI of the brain of March 31, 2024.
-CTA head/neck 04/24/24: No evidence of large vessel occlusion, or arterial dissection. Calcified plaque within each carotid bulb, associated with less than 50% stenosis on each side. Aneurysm of the ascending thoracic aorta, measuring 4.9 cm in
greatest imaged orthogonal dimension. Main pulmonary trunk is dilated, measuring 3.9 cm in diameter, suggestive of pulmonary arterial hypertension. 1.9 cm right thyroid nodule. This may be further evaluated with thyroid ultrasound.
Care Review
Plan reviewed with: Physician (Hospitalist)
[2024-04-26 11:27] VITALS: BP 137/79
[2024-04-26 11:56] LABS: Glucose - Point of Care 214 mg/dl (70-99)
[2024-04-26] MEDS: NOVOLOG FLEXPEN 10 UNITS SC ×2 (12:27→17:28)
[2024-04-26] MEDS: NOVOLOG FLEXPEN-MODERATE RESISTANCE 3 UNITS SC (12:27)
[2024-04-26] MEDS: MACROBID 100 MG PO ×2 (12:28→20:26)
--- NOTE | 2024-04-26 14:18 | W.PN.NEURO.1 ---
Addendum entered and electronically signed by Yari Schuler DO 04/26/24 14:32:
Correction: was on ASA in addition to anticoagulation as an outpatient; this can be continued.
Original Note:
Today's Communication / Plan
-
f/u CSF results
restart Eliquis
stop ASA
Neuro Assessment/Plan
Assessment
68-year-old woman with a PMH of obesity, hyperlipidemia, paroxysmal atrial fibrillation, CHF, diabetes mellitus, diabetic neuropathy presented to hospital due to sudden onset left leg weakness which lasted around 1 hour on 04/23/24. She was not a
candidate for TNK/IAT due to low NIHSS and no LVO. This seems to have completely resolved at this point. She denies any radiculopathy symptoms or significant change in chronic back pain she has had significant multiple spinal surgeries of the
lumbar spine.
Patient had been not taking her apixaban for about the past 3 weeks as she ran out.
Due to new onset daily headache starting 6 months ago and worsening in the past 2-3 months, patient had an outpatient brain MRI with and without contrast on 03/31/24 that was concerning for possibly brain metastasis to the right side of the brain.
Patient had not had any focal symptoms of left-sided face arm or leg paresthesia or weakness or speech difficulty or confusion but rather had had several months of daily unusual headache which prompted the brain scan.
She has no known history of malignancy; has had an adrenal gland followed as well as multiple biopsies of a thyroid nodule.
Imaging:
-MRI brain 04/24/24: Focal area of abnormal restricted diffusion in the right posterior paramedian parietal lobe, cortical morphology, with no evidence for enhancement. This likely represents a focus of acute to subacute infarction. More subtle
region of increased diffusion-weighted signal and decreased ADC signal in the right paramedian frontal lobe and extending to the white matter of the right superior corpus callosum October. This is also suspicious for a focal area of acute to
subacute infarction. There are multiple regions of persistent enhancement in the right cerebral hemisphere as described, without significant interval change from MRI of the brain of March 31, 2024. Given the findings on today's examination, these are
felt to most likely be regions of subacute infarction with persistent enhancement. Neoplastic disease is not completely excluded and is considered within the differential. Continued MR imaging follow-up is advised. Patient is apparently scheduled
for metastatic workup, and would likely still be advised.
-CTA head/neck 04/24/24: No evidence of large vessel occlusion, or arterial dissection. Calcified plaque within each carotid bulb, associated with less than 50% stenosis on each side. Aneurysm of the ascending thoracic aorta, measuring 4.9 cm in
greatest imaged orthogonal dimension. Main pulmonary trunk is dilated, measuring 3.9 cm in diameter, suggestive of pulmonary arterial hypertension. 1.9 cm right thyroid nodule. This may be further evaluated with thyroid ultrasound.
Impressions:
1) Acute stroke of the right frontal lobe near the leg area of the homunculus fits with her transient symptoms of left leg weakness, likely due to atrial fibrillation as not taking anticoagulation for past 3 weeks, no significant carotid stenosis
as source on CTA head/neck
2) Headaches for 6 months led to obtaining brain MRI at end of March with abnormal results, some component of migraine with mild nausea and photophobia, probably an element of medication overuse headache with frequently daily use of Excedrin
migraine for months now. No fevers or chills, unusual weight loss.
3) Abnormal brain MRI, stable abnormalities on right frontal lobe, right insular region and right basal ganglia which appear similar compared to previous brain MRI. Hopefully these are subacute ischemic strokes that were minimally symptomatic
occurring sometimes in the several weeks prior to her March brain MRI, the repeated brain MRI images do not suggest progression of these lesions or surrounding edema (argues against neoplasm), and patient has been not taking Eliquis for at least past
3 weeks so context also would argue in favor of ischemic stroke from atrial fibrillation. Unlikely given the context along with her clinical picture that these represent infection or abscess. Metastatic malignancy will remain in differential
diagnosis. No obvious primary malignancy from thyroid, breast, or abdomen/pelvis on scans so far.
4) Atrial fibrillation not taking anticoagulation for at least past 3 weeks
Plan
-Lumbar puncture completed yesterday evening; resulting pending
-Patient will need repeat MRI brain w/ and w/o contrast in 3-4 weeks as an outpatient for further follow-up.
-Goal normotension.
-Restart home Eliquis 5mg BID.
-d/c ASA
-Hold off on steroids.
-LDL goal <70. LDL is 93. Patient is statin intolerant. Continue home Zetia 10mg and can discuss PCSK9 inhibitor options with Cardiology as an outpatient.
-Goal normoglycemia, hbA1c is 11.3.
-Okay to continue home oxycodone but this is likely not helping her headache.
-Discontinue use of Excedrin.
-Continue magnesium 400mg and riboflavin 400mg PO daily for headache prevention.
-Home metoprolol changed to propranolol 40mg BID for headache prevention, patient should update her Super[employer] Dr. Howard with this change.
-Provide prochlorperazine 10mg PO q8hrs for headache relief.
-Okay to take Imitrex 50mg PO for migraine relief sparingly.
-DVT prophylaxis.
-NIHSS and neurological checks per unit guidelines.
-Provide patient with a stroke education packet.
-PT/OT/ST evaluations.
-Needs outpatient f/u with her established neurologist, Dr. Mena Lainez in [place]; would benefit from a neuro-onc evaluation at [place] as well.
Subjective/Objective
Subjective Data
Date of Service: April 26, 2024
doing well, headache down to 2/10; no photo/phonophobia, n/v
Objective Data
Vital Signs
Temp Pulse Resp BP Pulse Ox
99.9 F 68 18 137/79 99
04/26/24 11:27 04/26/24 11:27 04/26/24 11:27 04/26/24 11:27 04/26/24 11:27
Lab Results
04/26/24 07:44
04/26/24 07:44
PT 13.1 Sec (11.4-14.6) 04/24/24 12:57
INR 0.99 04/24/24 12:57
Sodium 135 mmol/L (135-145) 04/26/24 07:44
Potassium 4.1 mmol/L (3.5-5.1) 04/26/24 07:44
BUN 21 mg/dl (7-17) H 04/26/24 07:44
Glucose 242 mg/dl (70-99) H 04/26/24 07:44
Calcium 9.6 mg/dl (8.4-10.2) 04/26/24 07:44
LDL Cholesterol, Calc 94 mg/dl 04/24/24 08:51
Patient Allergies
cephalexin [From Keflex] Allergy (Verified 04/25/24 16:23)
Hives
Penicillins Allergy (Verified 04/24/24 00:03)
Hives
pioglitazone [From Actos] Allergy (Verified 04/24/24 00:10)
Swelling
Vchivua-QLN-RkD Reductase Inhibitor [Xxazuix-Jym-Uki Reductase Inhibitor] Allergy (Verified 04/25/24 16:23)
muscle cramping
sulfamethoxazole [From Bactrim] Allergy (Verified 04/24/24 00:03)
Anaphylaxis
trimethoprim [From Bactrim] Allergy (Verified 04/24/24 00:03)
Anaphylaxis
some cheeses Allergy (Uncoded 04/24/24 00:03)
Itching
Physical Exam
-
No Apparent Distress
Eyes: No Ptosis and PERRLA
Extremities: No Clubbing, No Cyanosis and No Edema
Psych: Unremarkable
Extended Neurological Exam
Mood & Affect: Mood Unremarkable and Affect Unremarkable
Attention Span & Concentration: Awake, Alert, Interactive and No Difficulty with 2 Step Request
Memory: Unremarkable (AAOx3) and Able to Recall
Tremor: Hand Tremor Absent and Head Tremor Absent
Involuntary Movement: None
Speech: Quality Unremarkable, Quantity Unremarkable and Rate of Production Unremarkable
Cranial Nerve II: Left Eye: Pupillary Reactivity Unremarkable, Pupillary Size Unremarkable and Visual Lion Intact
Cranial Nerve II: Right Eye: Pupillary Reactivity Unremarkable, Pupillary Size Unremarkable and Visual Lion Intact
Cranial Nerves III, IV, : Extraocular Movement: Extraocular Movement Full in all Directions
Cranial Nerve V: Facial Sensation: Intact to Light Touch
Cranial Nerve VII: Facial Symmetry: Normal Facial Symmetry
Cranial Nerve VIII: Hearing: Unremarkable Hearing to Normal Conversational Volume
Cranial Nerves IX, X: Palate Movement: Palate Elevation Symmetric
Cranial Nerve XI: Shoulder Shrug: Unremarkable
Cranial Nerve XII: Tongue Protusion: Midline
Muscle Strength, Overall: Full Throughout
Muscle Bulk & Tone: Bulk Unremarkable and Tone Unremarkable
Pronator Drift: No Drift in Upper Extremities and No Drift in Lower Extremities
Touch Sensation: Double Simultaneous Stimulation Unremarkable
Coordination: Ahrbxs-hntt-biedml Testing Unremarkable
[2024-04-26 15:46] VITALS: BP 113/53
[2024-04-26 16:34] LABS: Glucose - Point of Care 165 mg/dl (70-99)
[2024-04-26] MEDS: NOVOLOG FLEXPEN-MODERATE RESISTANCE 1 UNITS SC (17:29)
--- NOTE | 2024-04-26 17:59 | PN.NS ---
Subjective
-
Patient seen and examined. Offers no complaints. is at bedside.
Physical Exam
-
Exam:
Exam:
Awake, alert, no apparent distress.
Pupils are equal round reactive to light
Extraocular movements are full without nystagmus
Face is symmetric, tongue is midline
Motor: 5/5 strength bilaterally in the upper extremities and lower extremities, with no evidence of pronator drift.
Sensation to light touch is intact
Gait not tested
Head is normocephalic atraumatic
Neck is supple
Breathing nonlabored
Abdomen is soft
Legs are warm, nonedematous
MRI of the brain with without contrast performed on 04/24/2024 was reviewed. There has been interval development of new right frontal DWI hyperintense focus, consistent with possible acute infarction. The areas of patchy enhancement noted within
the right insula appear to be less pronounced on the most current study, compared with the previous study performed on March 31, 2024. In fact there is less obvious appearance of ring-enhancing/ring enhancement noted on the most current study. The
area of DWI hyperintensity does not enhance on the current study.
Assessment / Plan
-
Is a 68-year-old female who presents with acute onset right leg weakness. She did have a brain MRI performed approximately 3 weeks prior which demonstrated multiple right-sided patchy, small areas of enhancement, with mild restricted diffusion.
There is minimal FLAIR signal hyperintensity surrounding these areas. She only had symptoms of headaches at that time.
Her most recent MRI performed demonstrates new area of restricted diffusion, consistent with likely new stroke. The multiple areas of persistent enhancement do not demonstrate any obvious interval change, making subacute infarction more likely, but
does not rule out neoplasm in the differential diagnosis.
MRI findings reviewed with hospital medicine, and also with the patient. Agree with thorough and comprehensive evaluation/workup to rule out other etiologies for MRI findings, patient symptomatology.
Would NOT recommend any brain biopsy for these lesions at the present time. Would recommend close interval MR imaging in approximately 4 to 6 weeks. If this demonstrates obvious change, and progression of these lesions, and other workup is [place]
negative, then patient may be candidate for possible biopsy for diagnosis.
Today's Communication
-
Discussed with patient, , and hospital medicine
[2024-04-26 19:50] VITALS: BP 127/74
[2024-04-26] MEDS: SENOKOT 17.2 MG PO (20:27)
[2024-04-26] MEDS: TYLENOL 650 MG PO (20:29)
[2024-04-26 21:21] LABS: Glucose - Point of Care 231 mg/dl (70-99)
[2024-04-26] MEDS: LANTUS 0.18 UNITS SC (22:59)
[2024-04-26 23:43] VITALS: BP 119/59
[2024-04-27] VITALS (7 sets, daily range): BP systolic 111–149; BP diastolic 49–78; PULSE 57; O2SAT 96; BMI 40.3
[2024-04-27] MEDS: BENADRYL 25 MG PO ×3 (00:27→16:48)
--- NOTE | 2024-04-27 07:13 | W.PN.HOSP.TC ---
Addendum entered and electronically signed by Susan Clancy MD 04/27/24 17:21:
I personally performed a history and physical exam of the patient and discussed management with the resident. I reviewed the resident's note and agree with the documented findings and plan of care HPI/CC except for changes.
CVS: S1-S2 normal
Chest: CTA B/L
Abdomen: Soft, NT
Extremities: No edema,
FISHING ROD TRIMMER: able to lift up legs in bed
# Left leg weakness
Resolved
Rim-enhancing lesions in the brain
Differentials include metastasis, CVA, infections
She admitted to not taking Eliquis for the past 2 weeks unclear if this could be the reason
Lumbar puncture , no bacterial infection. Rest pending.
No vegetations on echo
Toxoplasma IgM/IgG ordered
Infectious disease consulted, OK foir discharge, they will follow the spinel fluid for infections
Per discussion with neurology old stroke may also have appearance as she has. However she has not missed any doses of Eliquis until the previous MRI which was on March 31. She also has been having headaches for the past 6 months leading to possible
other etiologies.
Would also get a PET scan as scheduled
Stop Excedrin,
Nurtec for GUY
OP F/W with our neuro for discussing results - then Dr.Jessica Lainez at [place].
# Acute kidney injury
Possibly could be an injury
Creatinine better
Jardiance
# Constipation-Resolved
# Paroxysmal atrial fibrillation cardioversion October 2016
Ablation December 2016
Did not take Eliquis for 2 weeks as she ran out
Continue Eliquis 5 twice daily
$10 Copay card given
# Hypertension-continue Inderal. Restart losartan tomorrow as OP at 25 mg.
# Diabetes with neuropathy
Farxiga
Continue metformin
Lantus insulin 20units at night, NovoLog 12 BID and 5 before lunch
Hemoglobin A1c 11.3
She may need to be on insulin moving forward
Continue gabapentin for neuropathy
# Constipation-bowel regimen ordered
# Sleep apnea on CPAP
# Chronic heart failure with preserved ejection fraction. Restart Ethacrynic acid . Also on SGLT2 inhibitor.
# Hyperlipidemia-continue Zetia, Repatha
# History of herniated disks and degenerative joint disease-with microdiscectomy
# History of DRESS Syndrome from Bactrim
# Ascending aortic aneurysm 4.9 cm
# Hepatic steatosis chronically elevated LFTS
# 2.2 cm region of subtle increased attenuation in the inferior lateral margin of the right lobe-needs MRI as OP
# Diverticulosis
# 1.9 cm right thyroid nodule. She will need to follow with . She has had biopsies in the past .
# DVT prophylaxis
# Full code
Allergy/Immunology following discharge for antibiotic allergy testing for PCN and Cephalosporin allergy
D/W ID
D/W Neuro
D/W RN
D/W in detail
I have reached out to cards software installation engineer and discussed about BB and Losartan changes- Also that she needs an appointment . They will arrange
Discharge coordination time 50 min
Original Note:
Today's Communication/Plan
-
continue macrobid
d/c to home
Assessment / Plan
Assessment / Plan
68-year-old female with history of coronary disease, diabetes, hyperlipidemia, A-fib and ran out of the [employer] for 2-week and not taking it, presents with a sudden weakness of the left leg which resolved in the ER during exam and laying down, also
she has a chronic headache while the MRI on March 31 showed multiple ring-enhancing lesion on the right cerebral hemisphere.
#Left leg weakness,
PVD vs stroke versus related to the ring-enhancing lesion in the right cerebral hemisphere, vs metastatic disease.
- CT and CTA do not show any evidence of an acute infarct or large vessel occlusion
- possibility of subacute infarction
- successful reattempt LP on 04/25
- repeat Brain MRI with and w/o contrast: Focal area of abnormal restricted diffusion in the right posterior paramedian parietal lobe, cortical morphology, with no evidence for enhancement. This likely represents a focus of acute to subacute
infarction
- t/c PET scan
- repeat MRI in 3-4 weeks in OP
- Oncology on board
- Neuro: For home PRN headache control, recommend 10 mg TID Compazine, 50 mg Sumatriptan PRN (Limit this to 2 days of the week only)
- Will need neurology outpatient following
#Acute kidney injury,
- present on admission- now resolved
# Urinary incontinence- likely stress incont.
- UC no results because of contamination
- ID started macrobid
#Diabetes mellitus
- Continue insulin and monitor blood sugar.
- HbA1C 11.3
- resume farxiga
- continue metformin
- consideration for care home insulin due to poor BG control
- aspart 12 units before BF and Dinner and 5 before lunch and glargine 20 units at bedtime
#Chronic elevated liver enzymes likely secondary to fatty liver vs mets or Liver lesion
- check CT w contrast abd/pelvis
- viral hep pane negative
# Paroxysmal A-fib
- ran out of eliquis 2 weeks ago before admission
- EKG : ATRIAL FLUTTER WITH VARIABLE A-V BLOCK
- continue Eliquis
# Constipation
- bowel regimen
#Hypertension- on lasartan
#Coronary artery disease- switched metoprolol to propranolol given hx of headaches
#Chronic pain syndrome on narcotic.- continue oxycontin
#Peripheral neuropathy- continue gabapentin and duloxetine
# Sleep apnea on CPAP
# Chronic heart failure with preserved ejection fraction. Restart ethacrynic acid
# Hyperlipidemia-continue Zetia, Repatha
# History of herniated disks and degenerative joint disease-with microdiscectomy
# History of DRESS Syndrome from Bactrim
# Ascending aortic aneurysm 4.9 cm
# Hepatic steatosis
# 2.2 cm region of subtle increased attenuation in the inferior lateral margin of the right lobe-needs MRI
# Diverticulosis
# 1.9 cm right thyroid nodule. Recommended OP workup.
CODE STATUS: full code
DVT prophylaxis: Will SCD for now in case Of any intervention otherwise if no intervention planned can be started on pharmacologic prophylaxis.
Anticipated Discharge: Within 24 hours
Subjective/Interval History
-
Date of Service: April 27, 2024
Objective Data
-
Labs:
Laboratory Results
04/27/24
06:00
WBC Pending
Hgb Pending
Hct Pending
Plt Count Pending
Sodium Pending
Potassium Pending
Chloride Pending
Carbon Dioxide Pending
BUN Pending
Creatinine Pending
Glucose Pending
Calcium Pending
Total Bilirubin Pending
AST Pending
ALT Pending
Alkaline Phosphatase Pending
Vital Signs:
Vital Signs
Temp Pulse Resp BP Pulse Ox
98.3 F 64 18 111/53 94
04/27/24 03:28 04/27/24 03:28 04/27/24 03:28 04/27/24 03:28 04/27/24 03:28
I&O
04/26/24 04/27/24 04/28/24
06:59 06:59 06:59
Intake Total 480 / 480 480 / 480
Output Total 1050 / 1050 300 / 300
Balance -570 / -570 180 / 180
Review of Systems
-
History Source: Patient
Constitutional: Denies Fever
Respiratory: Denies Cough
Cardiac: Denies Chest Pain
Abdomen/GI: Denies Abdominal Pain
Genitourinary: Reports Incontinence
Musculoskeletal: Denies Joint Pain
Neuro: Denies Dizzy or Headache
Physical Exam
-
General: Well Developed and Well Nourished
HEENT: Normocephalic and Atraumatic
Respiratory: Clear to Auscultation
Cardiac: Regular Rhythm
GI: Soft and Nontender
Skin: Warm and Dry
Neuro: Awake, Alert and Oriented
Psych: Calm
Data Reviewed
-
Labs: Labs Reviewed by me, Discussed with Physician and Discussed with Patient
[2024-04-27 07:46] LABS: Glucose - Point of Care 201 mg/dl (70-99)
[2024-04-27] MEDS: MIRALAX 17 GRAMS PO (08:06)
[2024-04-27] MEDS: LOW STRENGTH ASPIRIN 81 MG PO (08:06)
[2024-04-27] MEDS: CYMBALTA DELAYED RELEASE 60 MG PO (08:06)
[2024-04-27] MEDS: NEURONTIN 300 MG PO (08:06)
[2024-04-27] MEDS: SENOKOT 17.2 MG PO (08:06)
[2024-04-27] MEDS: PROTONIX 40 MG PO (08:06)
[2024-04-27] MEDS: ZETIA 10 MG PO (08:06)
[2024-04-27] MEDS: MAG-TAB SR 84 MG PO (08:07)
[2024-04-27] MEDS: INDERAL 40 MG PO ×2 (08:07→18:27)
[2024-04-27] MEDS: MACROBID 100 MG PO ×2 (08:07→18:27)
[2024-04-27] MEDS: ELIQUIS 5 MG PO ×2 (08:07→18:28)
[2024-04-27] MEDS: OXYCONTIN (CONTROLLED RELEASE) 20 MG PO (08:08)
[2024-04-27 08:15] LABS: % Basophils 1.4 % (0-2); % Immature Granulocytes 1.1 % (0-0.5); % Lymphocytes 31.5 % (20.5-51.1); % Monocytes 7.3 % (1.7-9.3); % Neutrophils 48.7 % (42.2-75.2); Absolute Basophils 0.1 10^3/uL (0-0.2); Absolute Eosinophils 0.9 10^3/uL (0-0.7); Absolute Immature Granulocytes 0.1 10^3/uL (0-0.05); Absolute Monocytes 0.7 10^3/uL (0.1-0.6); Absolute Neutrophils 4.6 10^3/uL (1.4-6.5); Hemoglobin 13.9 g/dL (12.0-16.0); Mean Corp Hgb Conc. 33.1 g/dL (33.0-37.0); Mean Corpuscular Hgb 31.2 pg (27.0-31.0); Mean Corpuscular Volume 94.2 fL (81.0-99.0); Mean Platelet Volume 10.5 fL (7.4-10.4); Nucleated Red Blood Cells % 0 %; Platelet Count 266 10^3/uL (130-400); Red Blood Cell Count 4.46 10^6/uL (4.20-5.40); Red Cell Dist. Width 14.5 % (11.5-14.5); White Blood Cell Count 9.4 10^3/uL (4.8-10.8)
[2024-04-27] MEDS: NOVOLOG FLEXPEN 10 UNITS SC ×3 (08:24→17:42)
[2024-04-27] MEDS: FARXIGA 5 MG PO (08:24)
[2024-04-27] MEDS: GLUCOPHAGE 1000 MG PO ×2 (08:24→17:44)
[2024-04-27] MEDS: NOVOLOG FLEXPEN-MODERATE RESISTANCE 3 UNITS SC ×3 (08:25→17:43)
[2024-04-27 08:31] LABS: ALT (SGPT) 36 U/L (0-35); AST (SGOT) 105 U/L (14-36); Albumin 3.8 g/dl (3.5-5.0); Alkaline Phosphatase 69 U/L (38-126); Blood Urea Nitrogen 19 mg/dl (7-17); Calcium 9.5 mg/dl (8.4-10.2); Carbon Dioxide 27 mmol/L (22-30); Chloride 100 mmol/L (98-107); Estimated Creatinine Clearance 75 ml/min; Glucose 187 mg/dl (70-99); Potassium 4.1 mmol/L (3.5-5.1); Sodium 137 mmol/L (135-145); Total Bilirubin 0.3 mg/dl (0.2-1.3); Total Protein 6.3 g/dl (6.3-8.2); eGFR > 60.00
--- NOTE | 2024-04-27 10:16 | W.PN.ID1 ---
Date of Service
Date of Service: April 27, 2024
Today's Communication
Continue current course of Macrobid.
Assessment / Plan
Impression :
Left lower extremity weakness
Chronic headaches
ROMULO- resolving
Paroxysmal A-fib
Urinary urgency
Multiple abx allergies (PCN - hives; keflex - hives; Bactrim - anaphylaxis/DRESS)
Other conditions
Hypertension
Diabetes
LAVONNE on CPAP
Hyperlipidemia
Ascending aortic aneurysm
Hepatic steatosis
Diverticulosis
Recommendations
Patient is asymptomatic currently, afebrile, no leukocytosis although reporting urinary urgency.
As per neurology-her transient left leg weakness is likely due to acute stroke of the right frontal lobe, due to atrial fibrillation as patient not on Eliquis for the past 3 weeks.
MRI also showed evidence of multiple lesions, some 'ring-enhancing'
LP without pleocytosis. Toxoplasma serology pending.
Urine culture mixed jose m.
Patient clinically feeling improved. Would continue with a 7-day course of Macrobid in total.
No objection to discharge from infectious disease standpoint.
Patient counseled to follow-up with Allergy/Immunology following discharge for antibiotic allergy testing.
����������������������������������������������������������
Chief Complaint
-: UTI
Subjective / Review of Systems
Review of Systems: No Fever, No Chills and No Dysuria
Vital Signs / Physical Exam
Vital Signs
Vital Signs
Temp Pulse Resp BP Pulse Ox
97.6 F 63 12 126/61 90
04/27/24 07:13 04/27/24 07:13 04/27/24 07:13 04/27/24 07:13 04/27/24 07:13
Physical Exam
Constitutional: No Acute Distress, Comfortable and Non-toxic
Eyes: Sclera Anicteric
Pulmonary: Non Labored
Gastrointestinal: Non Distended
Neurological: Awake and Alert
Psychological: Calm
Objective Data
Lab Data
Lab Results
04/27/24 07:24
04/27/24 07:24
PT 13.1 Sec (11.4-14.6) 04/24/24 12:57
INR 0.99 04/24/24 12:57
Estimated Creat Clear 75 ml/min 04/27/24 07:24
Total Bilirubin 0.3 mg/dl (0.2-1.3) 04/27/24 07:24
AST 105 U/L (14-36) H 04/27/24 07:24
ALT 36 U/L (0-35) H 04/27/24 07:24
Alkaline Phosphatase 69 U/L (38-126) 04/27/24 07:24
Most recent labs reviewed.
Micro Results:
04/24/24 14:35 CSF Culture - Preliminary
Csf No Growth After 48 Hours
Gram Stain - Preliminary
04/25/24 19:02 Urine Culture - Final
Urine
04/24/24 14:35 Meningitis/Encephalitis Panel (PCR) - Final
Csf
Imaging
MRI brain 03/31/24: Four enhancing intraparenchymal lesions in the right cerebral hemisphere, the two larger of which show ring enhancement. The primary concern would be intraparenchymal brain metastases. Other differential considerations including
signal changes and enhancement secondary to infection or ischemia would be considered less likely based on their imaging appearance.
Abdomen/ Pelvis CT 04/04/24: No acute inflammatory process within the abdomen or pelvis.
Hepatic steatosis. 2.2 cm region of subtle increased attenuation at the inferior-lateral margin of the right lobe, which likely represents focal fatty sparing. Further evaluation with MRI may be considered for additional characterization and to
exclude a subtle mass if there are no contraindications.
Small stable left adrenal nodule consistent with a benign etiology.
No obstructive uropathy or suspicious renal mass.
Minor diverticulosis. No acute diverticulitis. Constipation; Moderate fecal burden.
Stable small retroperitoneal lymph nodes without enlarged adenopathy.
Fat-containing umbilical hernia measuring 7 cm transverse. Edema within the subcutaneous fat of the inferior abdominal wall panniculus.
No pelvic mass or adenopathy. The uterus and adnexal regions are unremarkable. The ovaries are normal in size and symmetric.
MRI brain 04/24/24: Focal area of abnormal restricted diffusion in the right posterior paramedian parietal lobe, cortical morphology, with no evidence for enhancement. This likely represents a focus of acute to subacute infarction. More subtle region
of increased diffusion-weighted signal and decreased ADC signal in the right paramedian frontal lobe and extending to the white matter of the right superior corpus callosum October. This is also suspicious for a focal area of acute to subacute
infarction. There are multiple regions of persistent enhancement in the right cerebral hemisphere as described, without significant interval change from MRI of the brain of March 31, 2024.
-CTA head/neck 04/24/24: No evidence of large vessel occlusion, or arterial dissection. Calcified plaque within each carotid bulb, associated with less than 50% stenosis on each side. Aneurysm of the ascending thoracic aorta, measuring 4.9 cm in
greatest imaged orthogonal dimension. Main pulmonary trunk is dilated, measuring 3.9 cm in diameter, suggestive of pulmonary arterial hypertension. 1.9 cm right thyroid nodule. This may be further evaluated with thyroid ultrasound.
Care Review
Plan reviewed with: Physician (Hospitalist)
--- NOTE | 2024-04-27 11:56 | W.DCSUMMARY ---
Documented by User: Seven Lora MD, Resident 04/27/24 17:56
Discharge Summary
Discharge Data
Date of Admission: 04/24/24
Date of Discharge: 04/27/24
-
Pending Results: Yes
Additional Pending Results:
Toxo IGg/IGM
Hospital Course
Discharging Physician : Seven Lora MD ; Susan Kurtz MD
Disposition : Home with home care
Primary care physician : Luis Alberto Gold
Principal Discharge diagnosis : Left leg weakness with ring enhancing lesions in the brain on MRI
Chronic Discharge diagnosis : Urinary incontinence, diabetes mellitus, chronic elevated liver enzymes secondary to fatty liver, paroxysmal A-fib, constipation, hypertension, coronary artery disease, chronic pain syndrome on narcotics, peripheral
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
Hospital Course : 68-year-old female presented to the emergency department for evaluation of left leg weakness which started when she tried to stand up from sitting position. She does have a history of multiple back surgeries. She informed that
her recent MRI showed some lesions on her brain. Initially differentials included TIA versus CVA versus seizure versus lumbar radiculopathy. CT and CTA did not show any evidence of acute infarct or large vessel occlusion. Patient was not a
candidate of thrombolysis given low NIH score as well as the possibility of cerebral mets. She was admitted for further workup for her leg weakness. Neurosurgery, oncology and neurology was consulted for further evaluation. She reportedly did not
use Eliquis for least the last couple of weeks and initially it was held in case she needed any intervention/biopsy. Neurology switched her metoprolol to propranolol given her history of headaches. She was informed to stop Excedrin Migraine. It
was decided to perform a lumbar puncture, which failed on first attempt however second attempt was successful after 12 hours of lumbar traction she will be started on Eliquis. She also received an echo which did not show any vegetations. ID was
consulted for evaluation of infectious causes. Toxoplasma IgM/IgG was ordered and results are still pending at the time of discharge. Her creatinine was also high probably since he reports she received contrast for multiple imaging studies. Fluid
was noted negative for any bacterial infection. ID started the patient on Macrobid for urinary symptoms. Her Farxiga was resumed in addition to metformin. She was made aware about insulin adjustment. She was discharged with remaining course of
Macrobid was sent to her pharmacy. Her losartan dose was also decreased and she was advised to follow-up with the family doctor for further adjustment if needed.
Important imaging findings : CT Head W/o Cont STROKE ALERT
FINDINGS:
No intra or extra axial hemorrhage is appreciated. No midline shift, edema, or abnormal mass effect.
The ventricles and sulci are of normal caliber.
There is mild confluent periventricular and deep subcortical white matter hypoattenuation.
Several foci of hypoattenuation are seen within the left cerebral hemisphere, including the left parietal lobe in the paraventricular region best seen on image 20, and within the right posterior parietal region on image 17.
No displaced skull fracture is seen.
The mastoid air cells and visualized paranasal sinuses are normally aerated.
IMPRESSION:
1. No intracranial hemorrhage or abnormal mass effect.
2. Scattered foci of hypoattenuation within the right cerebral hemisphere. These may be related to ring-enhancing masses seen on prior MRI dated 03/31/2024, and are concerning for intracranial metastasis.
3. CT appearance is nonspecific, and infarct or small vessel ischemic change may look similar on CT.
CT Head & Neck Angio W/wo IV
FINDINGS:
Ascending thoracic aorta is partially imaged, and measures 4.9 cm in greatest orthogonal dimension.
Main pulmonary trunk measures 3.9 cm in diameter.
Arch vessels are patent, without evidence of significant stenosis or dissection.
The right common carotid artery is of normal caliber. Calcified plaque is seen within the right carotid bulb, associated with less than 50% stenosis. The right middle cerebral artery is within normal limits. There is symmetric cortical perfusion
within the MCA territory.
The left common carotid artery is of normal caliber. Calcified plaque within the left carotid bulb, associated with less than 50% stenosis The left internal carotid artery is also of normal caliber, without evidence of significant carotid stenosis,
or carotid dissection. The left middle cerebral artery is within normal limits. There is symmetric cortical perfusion within the MCA territory.
Left vertebral artery is dominant, and the V4 segment of the right vertebral artery is hypoplastic.
Right thyroid nodule measures 1.9 cm in diameter. No pathologic lymphadenopathy is seen within the neck. No large soft tissue masses are appreciated.
Visualized salivary glands are within normal limits.
No focal aggressive osseous lesions are seen. Moderate degenerative disc disease within the lower cervical spine.
The visualized lung apices are normally aerated.
IMPRESSION:
1. No evidence of large vessel occlusion, or arterial dissection.
2. Calcified plaque within each carotid bulb, associated with less than 50% stenosis on each side.
3. Aneurysm of the ascending thoracic aorta, measuring 4.9 cm in greatest imaged orthogonal dimension.
4. Main pulmonary trunk is dilated, measuring 3.9 cm in diameter, suggestive of pulmonary arterial hypertension.
5. 1.9 cm right thyroid nodule. This may be further evaluated with thyroid ultrasound
MR Brain W/o & With Contrast
FINDINGS: MRI of the brain is performed on 3 Maryellen field strength machine, images obtained prior to and following intravenous administration of gadolinium-based contrast agent.
On diffusion-weighted images 18 and 19, subtle focus of increased diffusion-weighted signal in the right paramedian frontal lobe and extending into the white matter of the superior margin of the right paramedian corpus callosum. In the region of
white matter involvement, this has subtle decreased ADC signal. No evidence for enhancement in this region. This finding is considered suspicious for a focal region of acute to subacute infarction.
Additionally, in the right posterior and superior paramedian parietal lobe, there is a cortical U-shaped focus of increased diffusion-weighted signal and decreased ADC signal, with no evidence for associated enhancement. This is seen on page 23 of
the diffusion-weighted images, and is likely a region of acute to subacute infarction.
Within the right frontal lobe within the anterior insula, there is a focal area of gyriform enhancement, which extends slightly superiorly and medially into the henderson radiata of the right frontal lobe lateral to the anterior body of the right
lateral ventricle. This has associated increased T2 and FLAIR signal. This finding is without significant interval change compared to examination of March 31, 2024, seen on images 77 through 96 of postcontrast axial series 802.
Additionally, slightly more anteriorly within the cortex of the right anterior insula, there is a 5 mm punctate focus of cortical enhancement, which also appears stable from prior examination. This finding is seen on image 80 of series 802.
In the posterior aspect of the right lentiform nucleus, there is a focal area of enhancement, measuring approximately 1 cm in diameter, seen on image 71 of series 802. The region of enhancement does not appear significant change, but previously,
this was associated with focal increased T2-weighted signal, which is not evident on this examination, now having a small focal area of decreased T2 gradient-echo signal.
In the posterior and inferior insula, on image 89 of series 802, there is a punctate 3 mm focus of enhancement which is unchanged from previous examination.
Best seen on sagittal image 129 of series 801, there is a small curvilinear focus of cortical enhancement in the right parietal lobe, which in retrospect is barely conspicuous on prior examination.
No focus of abnormal enhancement is seen within the cerebellar hemispheres or brainstem. No focus of abnormal enhancement is seen within the left cerebral hemisphere.
There is no mass effect with no midline shift.
Given the subtle foci which are suspicious for areas of acute to subacute infarct, I suspect that the other regions of persistent enhancement are due to persistent enhancement involving regions of subacute infarction. Neoplastic disease is still
possible and continued follow-up brain MRI imaging is advised. Also, metastatic workup may be useful to look for any signs of primary malignancy.
Mild to moderate diffuse atrophy is present.
There are mild to moderate T2 and FLAIR white matter hyperintensities, commonly seen with aging and usually attributed to small vessel ischemic disease.
There is no evidence for Chiari malformation. No gross abnormality of the pituitary gland.
There is evidence of previous cataract surgery.
Mild patchy mucosal thickening of the ethmoid sinuses. The rest of the paranasal sinuses appear clear. The mastoid air cells appear clear.
IMPRESSION: Focal area of abnormal restricted diffusion in the right posterior paramedian parietal lobe, cortical morphology, with no evidence for enhancement. This likely represents a focus of acute to subacute infarction.
More subtle region of increased diffusion-weighted signal and decreased ADC signal in the right paramedian frontal lobe and extending to the white matter of the right superior corpus callosum October. This is also suspicious for a focal area of
acute to subacute infarction.
There are multiple regions of persistent enhancement in the right cerebral hemisphere as described, without significant interval change from MRI of the brain of March 31, 2024. Given the findings on today's examination, these are felt to most likely
be regions of subacute infarction with persistent enhancement. Neoplastic disease is not completely excluded and is considered within the differential. Continued MR imaging follow-up is advised. Patient is apparently scheduled for metastatic workup,
and would likely still be advised
Procedure findings :
Lumbar Puncture:
Fluid Eosinophils
CSF Appearance
Clear
CSF Color
Colorless
CSF WBC
(0-5�mm^3) 2
CSF RBC
36
CSF Cell Count Tube #
4��
CSF Comment
��
CSF Glucose
(40-70�mg/dl) 152�H
CSF Total Protein
(12-60�mg/dl) 254�H
CSF Paraneoplastic Abs
Pending
CSF Angiotensin Conv Enz
Pending
CSF VDRL
Pending
CSF C. neoformans Ag
(Negative) Negative��
Discharge Plan
-
Patient Disposition: Home with Home Care
Discharge Diagnosis/Procedures: Left leg weakness with ring enhancing lesions in the brain on MRI, acute kidney injury-resolved, urinary incontinence, diabetes mellitus, chronic elevated liver enzymes secondary to fatty liver, paroxysmal A-fib,
constipation, hypertension, coronary artery disease, chronic pain syndrome on narcotics, peripheral neuropathy, sleep apnea, chronic heart failure with preserved ejection fraction, hyperlipidemia, history of herniated disks, history of dress
syndrome from Bactrim, ascending aortic aneurysm-stable, hepatic steatosis, diverticulosis, thyroid nodule,
Condition: Fair
Diet: Low Fat and Diabetic, Carb Controlled
Activity: As tolerated
Bathing Restrictions: OK to Shower
Others Tests: Ultrasound of the thyroid for 1.9 cm right thyroid nodule. Follow-up with Dr. Salgado. MRI of the brain with and without contrast in 4 weeks. MRI of the liver with contrast as outpatient
Activity Restrictions/Additional Instructions:
please keep a log of sugars at home and follow up with endocrine or PCP to adjust inulin. Weight loss advised. Follow-up with Dr. Schuler or Dr. Smith for results of the lumbar puncture. Also follow-up with Dr. Mena Lainez. Follow-up with GI
for elevated liver function tests
Referrals:
Luis Alberto Gold DO [Family Provider] - in less than 1 week
Allen Salgado MD [Consulting Staff] - in less than 1 week
Viktoriya Howard MD [Active] - in less than 1 week
Yari Schuler DO [Active] - in less than 1 week
Additional Discharge Medication Instructions: Metoprolol changed to propranolol by neurology. Dose of losartan reduced because of blood pressure. Please follow-up with cardiology to discuss this. Do not take Excedrin
Use insulin as part 5 units with lunch
Use insulin glargine 20 units at bedtime
Losartan 25 mg tablet by mouth daily
Magnesium oxide 500 mg capsule by mouth daily
Macrobid 100 mg 1 capsule by mouth twice daily for next 5 days
Nurtec 75 mg tablet 1 tablet as needed for headache
Propranolol 40 mg tablet by mouth twice daily
Vitamin B 2 400 mg tablet daily
Senna 8.6 mg tablet by mouth twice daily
Stop Excedrin
Stop metoprolol
Stop zinc tablet
Prescriptions:
New
sennosides [Senna Laxative] 8.6 mg Tablet
17.2 mg PO BID Qty: 0 0RF
propranolol 40 mg Tablet
40 mg PO BID Qty: 60 0RF
losartan 25 mg tablet
25 mg PO HS Qty: 30 1RF
insulin aspart U-100 [Novolog FlexPen U-100 Insulin] 100 unit/mL (3 mL) insulin pen
5 unit SC DAILY@1200 Qty: 15 0RF
Rx Instructions:
Lunch
insulin glargine [Lantus Solostar U-100 Insulin] 100 unit/mL (3 mL) insulin pen
20 unit SC QPM Qty: 15 0RF
Nurtec ODT 75 mg tablet,disintegrating
75 mg PO ONCE PRN (Reason: migraine headache) Qty: 30 0RF
magnesium oxide 500 mg capsule
500 mg PO DAILY Qty: 30 0RF
riboflavin (vitamin B2) 400 mg tablet
400 mg PO DAILY Qty: 30 0RF
(DME) pen needle, diabetic [Pen Needle] 31 gauge x 3/16' needle
See Rx Instructions .Route Qty: 100 0RF
Rx Instructions:
ACHS
nitrofurantoin monohyd/m-cryst [Macrobid] 100 mg capsule
100 mg PO BID Qty: 11 0RF
Continued
gabapentin 300 MG capsule
300 mg PO BID
ezetimibe 10 MG tablet
10 mg PO DAILY
oxycodone [OxyContin] 20 MG tablet,oral only,ext.rel.12 hr
20 mg PO Q12
Patient Comments:
on hold pending insurance
oxycodone 10 MG tablet
10 mg PO Q8HPRN PRN (Reason: pain)
cholecalciferol (vitamin D3) 125 MCG tablet,disintegrating
2,500 unit PO HS
polyethylene glycol 3350 17 GRAMS powder in packet
17 grams PO DAILY PRN (Reason: constipation)
ascorbic acid (vitamin C) [Vitamin C] 500 MG tablet
500 mg PO DAILY
diphenhydramine HCl [Banophen] 25 MG capsule
25 mg PO Q4HPRN PRN (Reason: itching)
duloxetine 60 MG capsule,delayed release(DR/EC)
60 mg PO DAILY
dapagliflozin propanediol [Farxiga] 5 MG tablet
5 mg PO DAILY
Repatha Syringe 140 MG/ML syringe
140 mg SQ Q2W
ethacrynic acid 25 MG tablet
25 mg PO PRN PRN (Reason: swelling)
Patient Comments:
1-2 tabs
ascorbic acid (vitamin C) [Vitamin C With Amberly Hips] 500 MG tablet
500 mg PO DAILY
vitamin B complex 1 TAB tablet
1 tab PO DAILY
epinephrine [EpiPen 2-Cezar] 0.3 MG/0.3 ML auto-injector
0.3 mg IJ PRN PRN (Reason: anaphylaxis)
naloxone [Narcan] 4 MG spray,non-aerosol
4 mg intranasal DIRECTED PRN (Reason: overdose of oxycodone)
aspirin 81 mg Tablet,Delayed Release (Dr/Ec)
81 mg PO DAILY
metformin 1,000 MG tablet
1,000 mg PO BID Qty: 0 0RF
Rx Instructions:
Hold post cath, resume on Sat am
Eliquis 5 MG tablet
5 mg PO BID Qty: 60 1RF
Changed
insulin aspart U-100 [Novolog U-100 Insulin aspart] 1,000 UNITS/10 ML solution
12 unit SC BID Qty: 0 0RF
Discontinued
losartan [Cozaar] 100 MG tablet
100 mg PO DAILY
Magnacaps 100 MG capsule
100 mg PO DAILY
metoprolol tartrate [Lopressor] 50 MG tablet
75 mg PO DAILY
zinc 10 MG tablet
23 mg PO BID
metoprolol tartrate 50 mg Tablet
50 mg PO HS
Excedrin Extra Strength 250-250-65 mg Tablet
1 tab PO Q6H PRN (Reason: pain)
Discharge Orders:
Discharge Patient (As Directed); Ordered 04/27/24
Ordered By: Seven Lora
Discharge Date and Time
Discharge Date/Time: 04/27/24 19:16
Print Language: UKRAINIAN

Documented by User: Susan Clancy MD 04/28/24 09:33
Discharge Summary
Discharge Data
Date of Admission: 04/24/24
Date of Discharge: 04/28/24
Hospital Course
Discharging Physician : Seven Lora MD ; Susan Kurtz MD
Disposition : Home with home care
Primary care physician : Luis Alberto Gold
Principal Discharge diagnosis : Left leg weakness with ring enhancing lesions in the brain on MRI
Chronic Discharge diagnosis : Urinary incontinence, diabetes mellitus, chronic elevated liver enzymes secondary to fatty liver, paroxysmal A-fib, constipation, hypertension, coronary artery disease, chronic pain syndrome on narcotics, peripheral
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
Hospital Course : Pleasant 68-year-old female presented to the emergency department for evaluation of left leg weakness which started when she tried to stand up from sitting position. She does have a history of multiple back surgeries. She
informed that her recent outpatient MRI showed some lesions on her brain. She is supposed to get a PET scan . Initially differentials included TIA versus CVA versus versus lumbar radiculopathy. CT and CTA did not show any evidence of acute infarct
or large vessel occlusion. Patient was not a candidate of thrombolysis given low NIH score as well as the possibility of cerebral mets. She was admitted for further workup for her leg weakness. Neurosurgery, oncology and neurology was consulted
for further evaluation. She reportedly did not use Eliquis for least the last couple of weeks and initially it was held in case she needed any intervention/biopsy. Neurology switched her metoprolol to propranolol given her history of headaches.
She was informed to stop Excedrin Migraine. It was decided to perform a lumbar puncture, which failed on first attempt however second attempt was successful after 12 hours of lumbar traction she will be started on Eliquis. She also received an
echo which did not show any vegetations. ID was consulted for evaluation of infectious causes. Toxoplasma IgM/IgG was ordered and results are still pending at the time of discharge. Her creatinine was also high probably since he reports she
received contrast for multiple imaging studies. Fluid was noted negative for any bacterial infection. ID started the patient on Macrobid for urinary symptoms. Her Farxiga was resumed in addition to metformin. She was made aware about insulin
adjustment. She was discharged with remaining course of Macrobid was sent to her pharmacy. Her losartan dose was also decreased and she was advised to follow-up with the family doctor for further adjustment if needed.
Important imaging findings : CT Head W/o Cont STROKE ALERT
FINDINGS:
No intra or extra axial hemorrhage is appreciated. No midline shift, edema, or abnormal mass effect.
The ventricles and sulci are of normal caliber.
There is mild confluent periventricular and deep subcortical white matter hypoattenuation.
Several foci of hypoattenuation are seen within the left cerebral hemisphere, including the left parietal lobe in the paraventricular region best seen on image 20, and within the right posterior parietal region on image 17.
No displaced skull fracture is seen.
The mastoid air cells and visualized paranasal sinuses are normally aerated.
IMPRESSION:
1. No intracranial hemorrhage or abnormal mass effect.
2. Scattered foci of hypoattenuation within the right cerebral hemisphere. These may be related to ring-enhancing masses seen on prior MRI dated 03/31/2024, and are concerning for intracranial metastasis.
3. CT appearance is nonspecific, and infarct or small vessel ischemic change may look similar on CT.
CT Head & Neck Angio W/wo IV
FINDINGS:
Ascending thoracic aorta is partially imaged, and measures 4.9 cm in greatest orthogonal dimension.
Main pulmonary trunk measures 3.9 cm in diameter.
Arch vessels are patent, without evidence of significant stenosis or dissection.
The right common carotid artery is of normal caliber. Calcified plaque is seen within the right carotid bulb, associated with less than 50% stenosis. The right middle cerebral artery is within normal limits. There is symmetric cortical perfusion
within the MCA territory.
The left common carotid artery is of normal caliber. Calcified plaque within the left carotid bulb, associated with less than 50% stenosis The left internal carotid artery is also of normal caliber, without evidence of significant carotid stenosis,
or carotid dissection. The left middle cerebral artery is within normal limits. There is symmetric cortical perfusion within the MCA territory.
Left vertebral artery is dominant, and the V4 segment of the right vertebral artery is hypoplastic.
Right thyroid nodule measures 1.9 cm in diameter. No pathologic lymphadenopathy is seen within the neck. No large soft tissue masses are appreciated.
Visualized salivary glands are within normal limits.
No focal aggressive osseous lesions are seen. Moderate degenerative disc disease within the lower cervical spine.
The visualized lung apices are normally aerated.
IMPRESSION:
1. No evidence of large vessel occlusion, or arterial dissection.
2. Calcified plaque within each carotid bulb, associated with less than 50% stenosis on each side.
3. Aneurysm of the ascending thoracic aorta, measuring 4.9 cm in greatest imaged orthogonal dimension.
4. Main pulmonary trunk is dilated, measuring 3.9 cm in diameter, suggestive of pulmonary arterial hypertension.
5. 1.9 cm right thyroid nodule. This may be further evaluated with thyroid ultrasound
MR Brain W/o & With Contrast
FINDINGS: MRI of the brain is performed on 3 [facility]ellen field strength machine, images obtained prior to and following intravenous administration of gadolinium-based contrast agent.
On diffusion-weighted images 18 and 19, subtle focus of increased diffusion-weighted signal in the right paramedian frontal lobe and extending into the white matter of the superior margin of the right paramedian corpus callosum. In the region of
white matter involvement, this has subtle decreased ADC signal. No evidence for enhancement in this region. This finding is considered suspicious for a focal region of acute to subacute infarction.
Additionally, in the right posterior and superior paramedian parietal lobe, there is a cortical U-shaped focus of increased diffusion-weighted signal and decreased ADC signal, with no evidence for associated enhancement. This is seen on page 23 of
the diffusion-weighted images, and is likely a region of acute to subacute infarction.
Within the right frontal lobe within the anterior insula, there is a focal area of gyriform enhancement, which extends slightly superiorly and medially into the henderson radiata of the right frontal lobe lateral to the anterior body of the right
lateral ventricle. This has associated increased T2 and FLAIR signal. This finding is without significant interval change compared to examination of March 31, 2024, seen on images 77 through 96 of postcontrast axial series 802.
Additionally, slightly more anteriorly within the cortex of the right anterior insula, there is a 5 mm punctate focus of cortical enhancement, which also appears stable from prior examination. This finding is seen on image 80 of series 802.
In the posterior aspect of the right lentiform nucleus, there is a focal area of enhancement, measuring approximately 1 cm in diameter, seen on image 71 of series 802. The region of enhancement does not appear significant change, but previously,
this was associated with focal increased T2-weighted signal, which is not evident on this examination, now having a small focal area of decreased T2 gradient-echo signal.
In the posterior and inferior insula, on image 89 of series 802, there is a punctate 3 mm focus of enhancement which is unchanged from previous examination.
Best seen on sagittal image 129 of series 801, there is a small curvilinear focus of cortical enhancement in the right parietal lobe, which in retrospect is barely conspicuous on prior examination.
No focus of abnormal enhancement is seen within the cerebellar hemispheres or brainstem. No focus of abnormal enhancement is seen within the left cerebral hemisphere.
There is no mass effect with no midline shift.
Given the subtle foci which are suspicious for areas of acute to subacute infarct, I suspect that the other regions of persistent enhancement are due to persistent enhancement involving regions of subacute infarction. Neoplastic disease is still
possible and continued follow-up brain MRI imaging is advised. Also, metastatic workup may be useful to look for any signs of primary malignancy.
Mild to moderate diffuse atrophy is present.
There are mild to moderate T2 and FLAIR white matter hyperintensities, commonly seen with aging and usually attributed to small vessel ischemic disease.
There is no evidence for Chiari malformation. No gross abnormality of the pituitary gland.
There is evidence of previous cataract surgery.
Mild patchy mucosal thickening of the ethmoid sinuses. The rest of the paranasal sinuses appear clear. The mastoid air cells appear clear.
[2024-04-27 12:38] LABS: Glucose - Point of Care 215 mg/dl (70-99)
[2024-04-27 13:36] LABS: C.neoformans Antigen Negative (Negative)
--- NOTE | 2024-04-27 15:13 | CM ---
met with patient at bedside.asked by attending to give patient a card for eliquis $10/day.dr also sending insulin scripts to patient's pharmacy for pricing.patient signed medicare letter.plan follow up for any op needs.
[2024-04-27 16:51] LABS: Glucose - Point of Care 213 mg/dl (70-99)
[2024-04-27 20:04] LABS: Toxoplasma gondii Ab, IgG <3.0 IU/mL (<=8.8)
[2024-04-28 02:01] LABS: CSF VDRL (T. pallidum) Non Reactive (Non Reactive)
[2024-04-29 01:20] LABS: Angiotensin-1- Converting, CSF 3.6 U/L (0.0-2.5)
== END 2024-04-27 19:16 | disposition home health service (06) | DRG 65 ==
LOC: 4 EAST ACU 02:22
PROVIDERS: Radiology Diagnostic Radiology; Radiology Vascular & Interventional Radiology; ADMITTING PHYSICIAN Internal Medicine; ATTENDING PHYSICIAN Hospitalist; CONSULT PHYSICIAN Internal Medicine Hematology & Oncology; EMERGENCY PHYSICIAN Emergency Medicine; FAMILY PHYSICIAN Family Medicine; OTHER PHYSICIAN Internal Medicine Infectious Disease; OTHER PHYSICIAN Neurological Surgery; OTHER PHYSICIAN Student in an Organized Health Care Education/Training Program
PROC: 00JU3ZZ Inspection of Spinal Canal, Percutaneous Approach (ICD-10-PCS; 2024-04-24)
PROC: 009U3ZX Drainage of Spinal Canal, Percutaneous Approach, Diagnostic (ICD-10-PCS; 2024-04-25)
DX: I63.89 Other cerebral infarction (principal); I50.32 Chronic diastolic (congestive) heart failure; N17.9 Acute kidney failure, unspecified; Z68.41 Body mass index [BMI] 40.0-44.9, adult; I48.0 Paroxysmal atrial fibrillation; I11.0 Hypertensive heart disease with heart failure; G47.33 Obstructive sleep apnea (adult) (pediatric); R29.701 NIHSS score 1; K76.0 Fatty (change of) liver, not elsewhere classified; I25.10 Atherosclerotic heart disease of native coronary artery without angina pectoris; I71.21 Aneurysm of the ascending aorta, without rupture; E78.00 Pure hypercholesterolemia, unspecified; E11.42 Type 2 diabetes mellitus with diabetic polyneuropathy; E11.649 Type 2 diabetes mellitus with hypoglycemia without coma; D35.02 Benign neoplasm of left adrenal gland; E86.0 Dehydration; G44.40 Drug-induced headache, not elsewhere classified, not intractable; M51.36 Other intervertebral disc degeneration, lumbar region; I27.21 Secondary pulmonary arterial hypertension; K59.00 Constipation, unspecified; G83.14 Monoplegia of lower limb affecting left nondominant side; N39.3 Stress incontinence (female) (male); G89.4 Chronic pain syndrome; E66.9 Obesity, unspecified; G43.909 Migraine, unspecified, not intractable, without status migrainosus; Z91.148 Patient's other noncompliance with medication regimen for other reason; Z88.8 Allergy status to other drugs, medicaments and biological substances; Z88.0 Allergy status to penicillin; Z88.2 Allergy status to sulfonamides; Z79.4 Long term (current) use of insulin; Z79.01 Long term (current) use of anticoagulants; Z79.84 Long term (current) use of oral hypoglycemic drugs; Z79.82 Long term (current) use of aspirin; Z79.891 Long term (current) use of opiate analgesic
CPT/HCPCS: 62328; 70450; 70496; 70498; 70553; 74230; 80053; 80061; 81003; 81015; 82105; 82164; 82248; 82945; 82962; 83036; 84157; 84484; 85025; 85027; 85610; 86255; 86592; 86705; 86708; 86777; 86778; 86803; 87015; 87070; 87086; 87205; 87327; 87340; 87483; 88108; 89051; 92523; 92610; 92611; 93005; 93306; 94660; 97116; 97162; 97166; 97530; 99291; A9575; Q9967

== ENCOUNTER → 2024-08-12 11:54 | Outpatient (REF) | payer BC, MEDICARE, SELFPAY | LOC: MRI 3T 11:54 | PROVIDERS: ATTENDING PHYSICIAN Psychiatry & Neurology Neurology; FAMILY PHYSICIAN Family Medicine | DX: D86.9 Sarcoidosis, unspecified (principal) | CPT/HCPCS: 70553; A9575 ==

== ENCOUNTER → 2024-10-09 06:49 | Outpatient (REF) | payer BC, MEDICARE, SELFPAY | LOC: RAD 06:49 | PROVIDERS: ATTENDING PHYSICIAN Family Medicine; FAMILY PHYSICIAN Family Medicine | DX: R20.9 Unspecified disturbances of skin sensation (principal) | CPT/HCPCS: 93922; 93925 ==

== ENCOUNTER → 2025-05-12 08:11 | Outpatient (REF) | payer BC, MEDICARE, SELFPAY | LOC: PAVMRI 08:11 | PROVIDERS: ATTENDING PHYSICIAN Nurse Practitioner Family; FAMILY PHYSICIAN Family Medicine | DX: G43.711 Chronic migraine without aura, intractable, with status migrainosus (principal); Z86.73 Personal history of transient ischemic attack (TIA), and cerebral infarction without residual deficits; I48.0 Paroxysmal atrial fibrillation; I25.10 Atherosclerotic heart disease of native coronary artery without angina pectoris; R93.0 Abnormal findings on diagnostic imaging of skull and head, not elsewhere classified; R86.6 Abnormal cytological findings in specimens from male genital organs | CPT/HCPCS: 70553; A9575 ==